=== PATIENT | male | born 1950 | race Caucasian/White ===

== ENCOUNTER 2023-07-07 10:49 | Emergency (ER) | payer OTHER ==
[~2023-07-07] VITALS: Ht 165.1 cm; Wt 63.6 kg
[2023-07-07 10:56] VITALS: TEMP 98.6; O2SAT 100
[2023-07-07 11:27] LABS: BASOPHILS # (AUTO) 0.1 X10'3 (0-0.2); EOSINOPHILS # (AUTO) 0.2 X10'3 (0-0.9); HEMOGLOBIN 12.9 g/dl (14.0-17.9); WHITE BLOOD COUNT 9.6 X10'3 (4.5-11.0)
[2023-07-07 11:29] LABS: BASOPHILS % (AUTO) 0.8 % (0-1); EOSINOPHILS % (AUTO) 1.8 % (0-6); LYMPHOCYTES # (AUTO) 4.2 X10'3 (1.1-4.8); LYMPHOCYTES % (AUTO) 43.7 % (21-51); MEAN CORPUSCULAR HEMOGLOBIN 29.2 PG (27.0-31.0); MEAN CORPUSCULAR HGB CONC 32.3 g/dL (33.0-36.5); MEAN CORPUSCULAR VOLUME 90.5 FL (78-98); MEAN PLATELET VOLUME 8.3 FL (7.4-10.4); MONOCYTES # (AUTO) 0.8 X10'3 (0-0.9); MONOCYTES % (AUTO) 8.1 % (2-12); NEUTROPHILS # (AUTO) 4.4 X10'3 (1.8-7.7); NEUTROPHILS % (AUTO) 45.6 % (42-75); PLATELET COUNT 621 X10'3 (140-440); RED BLOOD COUNT 4.42 X10'6 (4.70-6.10); RED CELL DISTRIBUTION WIDTH 16.7 % (11.5-14.5)
[2023-07-07 11:38] LABS: ALANINE AMINOTRANSFERASE 19 U/L (12-78); ALBUMIN 3.1 G/DL (3.4-5.0); ALBUMIN/GLOBULIN RATIO 0.5 (1.1-1.5); ALKALINE PHOSPHATASE 119 IU/L (46-116); ANION GAP 7 (8-16); ASPARTATE AMINO TRANSFERASE 14 U/L (10-37); BILIRUBIN,TOTAL 0.3 MG/DL (0.1-1.0); BLOOD UREA NITROGEN 21 MG/DL (7-18); BUN/CREATININE RATIO 21.2 (10.0-20.0); CALCIUM 9.9 MG/DL (8.5-10.1); CHLORIDE 101 MMOL/L (99-107); CREATININE 0.99 MG/DL (0.60-1.10); GLUCOSE 224 MG/DL (70-104); POTASSIUM 4.2 MMOL/L (3.5-5.1); SODIUM 135 MMOL/L (135-145); TOTAL CARBON DIOXIDE 26.9 MMOL/L (24-32); TOTAL PROTEIN 9.1 G/DL (6.4-8.2); eCRCL 59 ML/MIN; eGFR 74 ML/MIN
[2023-07-07 11:41] LABS: ANISOCYTOSIS 1+; BURR CELLS 1+; LARGE PLATELETS FEW; PLATELET ESTIMATE INCREASED; ROULEAUX 1+
[2023-07-07 11:46] LABS: PRO BRAIN NATRIURETIC PEPTIDE 1870 PG/ML (0-125)
[2023-07-07 12:21] LABS: BILIRUBIN,URINE NEGATIVE (Neg); CLARITY,URINE CLOUDY (Clear); COLOR,URINE YELLOW (Yellow); GLUCOSE, URINE >=1000 mg/dl (Neg); KETONES,URINE NEGATIVE (Neg); LEUKOCYTE ESTERASE ,URINE MODERATE (Neg); NITRITES, URINE NEGATIVE (Neg); OCCULT BLOOD,URINE MODERATE (Neg); PH,URINE 5.5 (4.8-8.0); PROTEIN,URINE 30 mg/dl (Neg); UROBILINOGEN,URINE 0.2 E.U/dL (0.2-1.0)
[2023-07-07 12:22] LABS: UA COLLECTION TYPE CLN CATCH MIDSTREAM
[2023-07-07 12:32] LABS: WBC,URINE TNTC /HPF (0-4)
[2023-07-07 12:40] LABS: SQUAMOUS EPITHELIAL CELL,UR NONE SEEN /LPF (FEW)
[2023-07-07 12:42] LABS: BACTERIA,URINE 1+ /HPF (Neg); YEAST FEW /HPF (NEGATIVE)
[2023-07-07] MEDS ORDERED: CefTRIAXone 1000mg IM Kit (w/lidocaine diluent) IM ONE (13:25)
[2023-07-07 14:11] VITALS: BP 115/71; PULSE 95; RESP 16
--- NOTE | 2023-07-07 14:12 | NUR ---
Patient refused IV insertion and when I discussed with him that I have to give the Rocephin IM for the UTI, he refused it initially.
[2023-07-07] MEDS ORDERED: CEPH250T PO (15:03)
== END 2023-07-07 15:42 | disposition home or self-care (01) ==
LOC: ER 10:50
DX: N39.0 Urinary tract infection, site not specified (principal); Z88.1 Allergy status to other antibiotic agents; Z88.8 Allergy status to other drugs, medicaments and biological substances
CPT/HCPCS: 36415; 71045; 80053; 81001; 83880; 84484; 85008; 85025; 87088; 93005; 96372; 99285; J0696

== ENCOUNTER 2023-09-03 06:29 | Day surgery (SDC) | payer OTHER ==
[~2023-09-03] VITALS: Ht 162.6 cm; Wt 66.7 kg
[2023-09-03] VITALS (9 sets, daily range): BP systolic 91–122; BP diastolic 37–56; PULSE 59–75; RESP 8–16; TEMP 97.7; O2SAT 97–99
[2023-09-03] MEDS ORDERED: cefazolin 2gm/D5W 100mL 100 ML IV ONE (06:50)
[2023-09-03] MEDS ORDERED: vancomycin/NS 1 GM ADD-VANTAGE 250 ML X 1 DOSE IV ONE (06:50)
[2023-09-03] MEDS ORDERED: ATOR-2 PO (07:28)
[2023-09-03] MEDS ORDERED: FERR325T28 PO (07:28)
[2023-09-03] MEDS ORDERED: SULF1TAB45 PO (07:28)
[2023-09-03] MEDS ORDERED: ASPI-1265 PO (07:28)
[2023-09-03] MEDS ORDERED: DABI150C PO (07:28)
[2023-09-03] MEDS ORDERED: CLOP75TA34 PO (07:28)
[2023-09-03] MEDS ORDERED: METF-438 PO (07:28)
[2023-09-03] MEDS ORDERED: INSU100V9 SQ (07:28)
[2023-09-03] MEDS ORDERED: VALS40TA11 PO (07:28)
[2023-09-03] MEDS ORDERED: ISOS30TA9 PO (07:28)
[2023-09-03] MEDS ORDERED: CARV25TA PO (07:28)
[2023-09-03 07:34] LABS: BASOPHILS # (AUTO) 0.1 X10'3 (0-0.2); BASOPHILS % (AUTO) 0.7 % (0-1); EOSINOPHILS # (AUTO) 0.2 X10'3 (0-0.9); EOSINOPHILS % (AUTO) 1.3 % (0-6); HEMATOCRIT 35.9 % (42.0-52.0); HEMOGLOBIN 11.7 g/dl (14.0-17.9); LYMPHOCYTES # (AUTO) 3.2 X10'3 (1.1-4.8); LYMPHOCYTES % (AUTO) 25.3 % (21-51); MEAN CORPUSCULAR HEMOGLOBIN 27.8 PG (27.0-31.0); MEAN CORPUSCULAR HGB CONC 32.5 g/dL (33.0-36.5); MEAN CORPUSCULAR VOLUME 85.6 FL (78-98); MEAN PLATELET VOLUME 8.7 FL (7.4-10.4); MONOCYTES # (AUTO) 1.1 X10'3 (0-0.9); NEUTROPHILS % (AUTO) 63.7 % (42-75); PLATELET COUNT 589 X10'3 (140-440); RED BLOOD COUNT 4.19 X10'6 (4.70-6.10); RED CELL DISTRIBUTION WIDTH 17.2 % (11.5-14.5); WHITE BLOOD COUNT 12.5 X10'3 (4.5-11.0)
[2023-09-03 07:45] LABS: ALBUMIN 3.1 G/DL (3.4-5.0); ANION GAP 9 (8-16); BLOOD UREA NITROGEN 34 MG/DL (7-18); BUN/CREATININE RATIO 28.3 (10.0-20.0); CALCIUM 9.5 MG/DL (8.5-10.1); CHLORIDE 104 MMOL/L (99-107); GLUCOSE 98 MG/DL (70-104); MAGNESIUM 1.4 MG/DL (1.5-2.4); POTASSIUM 4.8 MMOL/L (3.5-5.1); SODIUM 138 MMOL/L (135-145); TOTAL CARBON DIOXIDE 25.3 MMOL/L (24-32); eCRCL 47 ML/MIN; eGFR 60 ML/MIN
[2023-09-03 07:49] LABS: INR 1.1 INR; PROTHROMBIN TIME 11.9 SECONDS (9.0-12.0)
[2023-09-03] MEDS ORDERED: midazolam 1 mg/ML 2ml injection ONE ×2 (08:08→09:10)
[2023-09-03] MEDS ORDERED: LIDOCAINE 2%/EPI 1:100,000 inj. Multi-dose 20 ML VIAL ONE (08:08)
[2023-09-03] MEDS ORDERED: fentaNYL/PF 50MCG/1 ML 2ML syringe ONE ×2 (08:08→09:26)
[2023-09-03] MEDS ORDERED: vancomycin 1,000mg inj ONE (08:09)
[2023-09-03] MEDS ORDERED: SACU1TAB7 PO (08:35)
== END 2023-09-03 13:26 | disposition home or self-care (01) ==
LOC: SSTAY O 06:29
PROVIDERS: ATTEND Internal Medicine Cardiovascular Disease
DX: Z45.02 Encounter for adjustment and management of automatic implantable cardiac defibrillator (principal); I42.9 Cardiomyopathy, unspecified; I25.10 Atherosclerotic heart disease of native coronary artery without angina pectoris; I25.2 Old myocardial infarction; E11.9 Type 2 diabetes mellitus without complications; E78.5 Hyperlipidemia, unspecified; I11.0 Hypertensive heart disease with heart failure; I50.9 Heart failure, unspecified; D50.9 Iron deficiency anemia, unspecified; Z87.440 Personal history of urinary (tract) infections; Z79.01 Long term (current) use of anticoagulants; Z79.899 Other long term (current) drug therapy; Z79.82 Long term (current) use of aspirin; Z85.038 Personal history of other malignant neoplasm of large intestine; Z90.49 Acquired absence of other specified parts of digestive tract; Z88.1 Allergy status to other antibiotic agents
CPT/HCPCS: 33264; 36415; 80048; 82948; 83735; 85025; 85610; 93005; 99152; 99153; A6258; C1882; J2250; J3010; J3370; J7030

== ENCOUNTER 2023-10-08 10:55 | Day surgery (SDC) | payer OTHER ==
[~2023-10-08] VITALS: Ht 162.6 cm; Wt 58.2 kg
[2023-10-08] VITALS (9 sets, daily range): BP systolic 111–133; BP diastolic 53–70; PULSE 61–72; RESP 12–18; TEMP 97.9; O2SAT 98–100
[~2023-10-08 10:55] MED LIST: ATOR-2 PO; COR3.125T PO; DABI150C PO; INSU100V9 SQ; METF-438 PO; tamsulosin capsule PO
[2023-10-08 11:48] LABS: BASOPHILS # (AUTO) 0.1 X10'3 (0-0.2); EOSINOPHILS # (AUTO) 0.3 X10'3 (0-0.9); HEMOGLOBIN 10.8 g/dl (14.0-17.9)
[2023-10-08 11:50] LABS: BASOPHILS % (AUTO) 0.6 % (0-1); EOSINOPHILS % (AUTO) 2.7 % (0-6); HEMATOCRIT 34.1 % (42.0-52.0); LYMPHOCYTES # (AUTO) 3.4 X10'3 (1.1-4.8); LYMPHOCYTES % (AUTO) 30.2 % (21-51); MEAN CORPUSCULAR HEMOGLOBIN 27.8 PG (27.0-31.0); MEAN CORPUSCULAR HGB CONC 31.6 g/dL (33.0-36.5); MEAN CORPUSCULAR VOLUME 87.8 FL (78-98); MEAN PLATELET VOLUME 9.1 FL (7.4-10.4); MONOCYTES # (AUTO) 0.9 X10'3 (0-0.9); MONOCYTES % (AUTO) 8.2 % (2-12); NEUTROPHILS # (AUTO) 6.6 X10'3 (1.8-7.7); NEUTROPHILS % (AUTO) 58.3 % (42-75); PLATELET COUNT 451 X10'3 (140-440); RED BLOOD COUNT 3.89 X10'6 (4.70-6.10); RED CELL DISTRIBUTION WIDTH 18.4 % (11.5-14.5); WHITE BLOOD COUNT 11.3 X10'3 (4.5-11.0)
[2023-10-08 12:02] LABS: ALBUMIN 2.8 G/DL (3.4-5.0); ANION GAP 10 (8-16); BLOOD UREA NITROGEN 16 MG/DL (7-18); BUN/CREATININE RATIO 18.6 (10.0-20.0); CHLORIDE 103 MMOL/L (99-107); CREATININE 0.86 MG/DL (0.60-1.10); GLUCOSE 307 MG/DL (70-104); MAGNESIUM 1.9 MG/DL (1.5-2.4); POTASSIUM 4.5 MMOL/L (3.5-5.1); SODIUM 142 MMOL/L (135-145); TOTAL CARBON DIOXIDE 29.5 MMOL/L (24-32); eCRCL 64 ML/MIN; eGFR 87 ML/MIN
[2023-10-08 12:03] LABS: PROTHROMBIN TIME 10.8 SECONDS (9.0-12.0)
[2023-10-08] MEDS ORDERED: INSU100I52 SQ (12:04)
[2023-10-08] MEDS ORDERED: CARV-50 PO (12:04)
[2023-10-08] MEDS ORDERED: MIRT-142 PO (12:04)
[2023-10-08] MEDS ORDERED: ISOS30TA84 PO (12:04)
[2023-10-08] MEDS: vancomycin/NS 1 GM ADD-VANTAGE 250 ML X 1 DOSE IV ONE (12:19)
[2023-10-08 12:32] LABS: ANISOCYTOSIS 2+; PLATELET ESTIMATE INCREASED
[2023-10-08 12:33] LABS: ACANTHOCYTES 1+
[2023-10-08 12:34] LABS: LARGE PLATELETS FEW
[2023-10-08 12:35] LABS: ELLIPTOCYTES 1+
[2023-10-08 12:37] LABS: SCHISTOCYTES FEW
[2023-10-08] MEDS ORDERED: midazolam 1 mg/ML 2ml injection ONE (12:44)
[2023-10-08] MEDS ORDERED: vancomycin 1,000mg inj ONE (12:45)
[2023-10-08] MEDS ORDERED: fentaNYL/PF 50MCG/1 ML 2ML syringe ONE (12:45)
[2023-10-08] MEDS ORDERED: LIDOCAINE 2%/EPI 1:100,000 inj. Multi-dose 20 ML VIAL ONE (12:45)
[2023-10-08] MEDS ORDERED: HYDROcodone/acetaminophen 5mg/325mg tablet PO PRN (14:55)
[2023-10-08] MEDS ORDERED: LORazepam 1 MG tablet PO PRN (14:55)
[2023-10-08] MEDS ORDERED: normal saline 1000ml 1,000 ML IV SCH (14:55)
[2023-10-08] MEDS: cefazolin 2gm/D5W 100mL 100 ML IV ONE (14:55)
[2023-10-08] MEDS ORDERED: HYDROcodone/acetaminophen 10/325mg tab PO PRN (14:55)
[2023-10-19] MEDS ORDERED: INSU100V9 SQ (17:55)
[2023-10-30] MEDS ORDERED: ASPI-612 PO (18:45)
[2023-10-30] MEDS ORDERED: ONDA4TAB12 PO (18:45)
[2023-10-30] MEDS ORDERED: BISA10SU60 RC (18:45)
[2023-10-30] MEDS ORDERED: NA P230E (18:45)
[2023-10-30] MEDS ORDERED: ACET325T57 PO (18:45)
[2023-10-30] MEDS ORDERED: HYDR-3973 PO (18:45)
[2023-10-30] MEDS ORDERED: LACTOBACILLUS PO (18:45)
[2023-10-30] MEDS ORDERED: MERO1PIG IV (18:45)
[2023-10-30] MEDS ORDERED: DOCU100C40 PO (18:45)
[2023-10-30] MEDS ORDERED: MOM (18:45)
== END 2023-10-08 16:30 | disposition home or self-care (01) ==
LOC: CATH LAB 10:55 → SSTAY O 16:30
PROVIDERS: ATTEND Internal Medicine Cardiovascular Disease
DX: Z45.018 Encounter for adjustment and management of other part of cardiac pacemaker (principal); I11.0 Hypertensive heart disease with heart failure; I50.9 Heart failure, unspecified; E11.9 Type 2 diabetes mellitus without complications; I25.10 Atherosclerotic heart disease of native coronary artery without angina pectoris; E78.5 Hyperlipidemia, unspecified; I42.9 Cardiomyopathy, unspecified; Z85.038 Personal history of other malignant neoplasm of large intestine; Z79.01 Long term (current) use of anticoagulants; Z79.4 Long term (current) use of insulin; Z79.82 Long term (current) use of aspirin; Z79.891 Long term (current) use of opiate analgesic; Z79.899 Other long term (current) drug therapy; Z90.49 Acquired absence of other specified parts of digestive tract; Z98.890 Other specified postprocedural states
CPT/HCPCS: 33222; 36415; 80048; 82948; 83735; 85025; 85610; 93005; 99152; 99153; J2250; J3010; J3370; J7030; 85008; A6258; A6449

== ENCOUNTER 2023-11-02 08:04 | Observation (INO) | payer OTHER, MEDICARE ==
[~2023-11-02] VITALS: Ht 162.6 cm; Wt 65.4 kg
[2023-11-02] VITALS (20 sets, daily range): BP systolic 114–172; BP diastolic 49–85; PULSE 60–81; RESP 9–19; TEMP 97–97.7; O2SAT 95–100
[2023-11-02] MEDS: normal saline 1000ml 1,000 ML IV SCH ×3 (05:30→14:35)
[2023-11-02] MEDS: DOCUMENT DATE & TIME OF BETA-BLOCKER PO ONE (05:30)
[2023-11-02] MEDS: famotidine 20mg tablet PO ONE (05:30)
[2023-11-02] MEDS: ringers solution, lacted 1,000 ML IV SCH ×2 (05:30→10:30)
[2023-11-02] MEDS: famotidine/PF 10 mg/ml inj IV ONE (05:30)
[~2023-11-02 08:04] MED LIST changes: +ACET325T57 PO; +ASPI-612 PO; +BISA10SU60 RC; +CARV-50 PO; -COR3.125T PO; -DABI150C PO; +DOBUTamine/D5W 500mg/250ml premix IV ONE; +DOCU100C40 PO; +HYDR-3973 PO; -INSU100V9 SQ; +LACTOBACILLUS PO; +MERO1PIG IV; +MIRT-142 PO; +MOM; +NA P230E; +ONDA4TAB12 PO; -tamsulosin capsule PO
[2023-11-02] MEDS ORDERED: vancomycin 1,000mg inj ONE (09:54)
[2023-11-02] MEDS ORDERED: iohexol 350MG/ML 100ml bottle IV ONE (09:54)
[2023-11-02 10:04] LABS: BASOPHILS # (AUTO) 0.1 X10'3 (0-0.2); BASOPHILS % (AUTO) 0.9 % (0-1); EOSINOPHILS # (AUTO) 0.6 X10'3 (0-0.9); EOSINOPHILS % (AUTO) 5.2 % (0-6); LYMPHOCYTES # (AUTO) 2.5 X10'3 (1.1-4.8); LYMPHOCYTES % (AUTO) 22.6 % (21-51); MEAN CORPUSCULAR HEMOGLOBIN 29.1 PG (27.0-31.0); MEAN CORPUSCULAR HGB CONC 32.8 g/dL (33.0-36.5); MEAN CORPUSCULAR VOLUME 88.6 FL (78-98); MEAN PLATELET VOLUME 9.3 FL (7.4-10.4); MONOCYTES # (AUTO) 1.1 X10'3 (0-0.9); MONOCYTES % (AUTO) 10.2 % (2-12); NEUTROPHILS # (AUTO) 6.7 X10'3 (1.8-7.7); NEUTROPHILS % (AUTO) 61.1 % (42-75); PRE OP HEMATOCRIT 29.7 % (42.0-52.0); PRE OP PLATELET COUNT 387 X10'3 (140-440); RED BLOOD COUNT 3.36 X10'6 (4.70-6.10); RED CELL DISTRIBUTION WIDTH 16.7 % (11.5-14.5)
[2023-11-02 10:13] LABS: PRE OP HEMOGLOBIN 9.8 g/dL (14.0-17.9)
[2023-11-02] MEDS: vancomycin/NS 1 GM ADD-VANTAGE 250 ML IV ONE (10:15)
[2023-11-02 10:18] LABS: PRE OP PROTIME 10.9 SECONDS (9.0-12.0)
[2023-11-02] MEDS ORDERED: midazolam 1 mg/ML 2ml injection ONE (10:23)
[2023-11-02] MEDS ORDERED: fentaNYL /PF 50mcg/ml 5ml ampule ONE (10:23)
[2023-11-02 10:26] LABS: ALBUMIN 2.2 G/DL (3.4-5.0); ALBUMIN/GLOBULIN RATIO 0.5 (1.1-1.5); ALKALINE PHOSPHATASE 66 IU/L (46-116); BLOOD UREA NITROGEN 19 MG/DL (7-18); CALCIUM 8.8 MG/DL (8.5-10.1); CHLORIDE 105 MMOL/L (99-107); CREATININE 0.73 MG/DL (0.60-1.10); PRE OP ALT 22 U/L (30-65); PRE OP ANION GAP 10 (8-16); PRE OP AST 20 U/L (10-37); PRE OP BILIRUB, TOTAL 0.3 MG/DL (0.0-1.0); PRE OP GLUCOSE 130 MG/DL (70-104); PRE OP POTASSIUM 3.8 MMOL/L (3.4-5.1); PRE OP SODIUM 142 MMOL/L (135-145); TOTAL CARBON DIOXIDE 26.6 MMOL/L (24-32); TOTAL PROTEIN 6.8 G/DL (6.4-8.2); eCRCL 77 ML/MIN; eGFR > 90 ML/MIN
[2023-11-02] MEDS ORDERED: NORepinephrine 8 MG in NS 250 ML BAG (32 mcg/ml) IV ONE (10:28)
[2023-11-02] MEDS ORDERED: morphine 4 MG/ML inj SYRINge IV PRN (10:30)
[2023-11-02] MEDS: acetaminophen 1,000mg/100ml IV 100 ML IV ONE (10:30)
[2023-11-02] MEDS ORDERED: hydrALAZINE 20mg/ml inj. IV PRN (10:30)
[2023-11-02] MEDS ORDERED: meperidine/PF 25mg/ml syringe IV PRN ×3 (10:30)
[2023-11-02] MEDS ORDERED: labetalol 20mg/4ml (5mg/ml) syringe IV PRN (10:30)
[2023-11-02] MEDS ORDERED: proCHLORperazine 10 MG/2 ml inj IV PRN (10:30)
[2023-11-02] MEDS ORDERED: morphine 2 MG/ML inj. syringe IV PRN (10:30)
[2023-11-02] MEDS ORDERED: ondansetron/PF 4mg/2ml inj IV PRN (10:30)
[2023-11-02] MEDS ORDERED: LIDOcaine 2% (20mg/ml) 5ml vial ONE (11:44)
[2023-11-02] MEDS ORDERED: dexamethasone sod phosphate 4mg/ml inj. ONE (11:44)
[2023-11-02] MEDS ORDERED: propofol inj 20 ML IV ONE (11:44)
[2023-11-02] MEDS ORDERED: rocuronium 10mg/ml inj IV ONE (11:44)
[2023-11-02] MEDS ORDERED: ondansetron/PF 4mg/2ml inj ONE (11:44)
[2023-11-02] MEDS ORDERED: LIDOcaine 1% w/EPI 1:100,000 inj. MDV 50 ML VIAL ONE (11:56)
[2023-11-02] MEDS ORDERED: neostigmine methylsulfate 1 MG/ML 10ml vial ONE (13:35)
[2023-11-02] MEDS ORDERED: glycopyrrolate 0.2mg/ml inj ONE (13:35)
[2023-11-02] MEDS ORDERED: acetaminophen 325mg tablet PO PRN (14:35)
[2023-11-02] MEDS ORDERED: HYDROcodone/acetaminophen 5mg/325mg tablet PO PRN (14:35)
[2023-11-02] MEDS ORDERED: HYDROcodone/acetaminophen 10/325mg tab PO PRN (14:35)
[2023-11-02] MEDS ORDERED: non-formulary drug (Metformin HCl 1 TAB) PO SCH (20:00)
[2023-11-02] MEDS ORDERED: SODIUM CHLORIDE IV SCH (20:00)
[2023-11-02] MEDS: docusate sod 100mg capsule PO SCH (20:00)
[2023-11-02] MEDS: carVEDilol 12.5mg tablet PO SCH (20:00)
[2023-11-02] MEDS ORDERED: MEROPENEM IV SCH (20:00)
[2023-11-02] MEDS: HYDROcodone/acetaminophen 10/325mg tab PO PRN (22:22)
[2023-11-02] MEDS: mirtazapine 15mg tablet PO SCH (22:23)
[2023-11-02] MEDS: MEROPENEM 1GM/NS 100ML IVPB IV SCH (22:28)
[2023-11-03 02:00] VITALS: BP 129/60; PULSE 79; RESP 20; TEMP 97.8; O2SAT 97
[2023-11-03 06:00] VITALS: BP 119/54; PULSE 67; RESP 14; TEMP 98.2; O2SAT 97
[2023-11-03 06:14] LABS: BASOPHILS % (AUTO) 0.1 % (0-1); EOSINOPHILS % (AUTO) 0 % (0-6); HEMOGLOBIN 8.5 g/dl (14.0-17.9); LYMPHOCYTES # (AUTO) 1.7 X10'3 (1.1-4.8); LYMPHOCYTES % (AUTO) 12.4 % (21-51); MEAN CORPUSCULAR HEMOGLOBIN 28.6 PG (27.0-31.0); MEAN CORPUSCULAR HGB CONC 32.5 g/dL (33.0-36.5); MEAN PLATELET VOLUME 9.4 FL (7.4-10.4); MONOCYTES # (AUTO) 1.1 X10'3 (0-0.9); MONOCYTES % (AUTO) 8.1 % (2-12); NEUTROPHILS # (AUTO) 10.7 X10'3 (1.8-7.7); NEUTROPHILS % (AUTO) 79.4 % (42-75); PLATELET COUNT 329 X10'3 (140-440); RED BLOOD COUNT 2.96 X10'6 (4.70-6.10); WHITE BLOOD COUNT 13.4 X10'3 (4.5-11.0)
[2023-11-03] MEDS: aspirin 81mg, enteric-coated 1 TAB TABLET.DR PO SCH (08:00)
[2023-11-03] MEDS: bisacodyl 10mg suppository rectal RC SCH (08:00)
[2023-11-03] MEDS ORDERED: DEXTROSE 15 GM of carb/4 tabs (each vial/BOTTLE has 4 tablets) PO PRN ×2 (09:10)
[2023-11-03] MEDS ORDERED: glucagon, human recombinant 1mg kit SUBCUT PRN (09:10)
[2023-11-03] MEDS ORDERED: insulin Lispro (HumaLOG) vial - multi-dose SQ SCH (09:10)
[2023-11-03] MEDS ORDERED: dextrose 50%-water 50ml dispensing syringe IV PRN ×2 (09:10)
[2023-11-03] MEDS: MESSAGE TO PHARMACY PO ONE (09:14)
[2023-11-03] MEDS: atorvastatin 20mg tablet PO SCH (09:23)
[2023-11-03 11:00] VITALS: BP 139/70; PULSE 82; RESP 17; TEMP 98.9; O2SAT 98
[2023-11-03] MEDS ORDERED: insulin glargine (Lantus) pen - multi-dose SQ SCH (21:00)
== END 2023-11-03 13:19 ==
LOC: CATH LAB 08:04 → PCU 3S 15:34
PROVIDERS: ADMIT Internal Medicine Cardiovascular Disease; ATTEND Internal Medicine Cardiovascular Disease
DX: T82.7XXA Infection and inflammatory reaction due to other cardiac and vascular devices, implants and grafts, initial encounter (principal); I42.0 Dilated cardiomyopathy; I25.5 Ischemic cardiomyopathy; N39.0 Urinary tract infection, site not specified; I25.2 Old myocardial infarction; I25.10 Atherosclerotic heart disease of native coronary artery without angina pectoris; E87.5 Hyperkalemia; I13.0 Hypertensive heart and chronic kidney disease with heart failure and stage 1 through stage 4 chronic kidney disease, or unspecified chronic kidney disease; E11.22 Type 2 diabetes mellitus with diabetic chronic kidney disease; N18.9 Chronic kidney disease, unspecified; I50.9 Heart failure, unspecified; Z79.4 Long term (current) use of insulin; Z79.899 Other long term (current) drug therapy; Z79.01 Long term (current) use of anticoagulants; Z95.810 Presence of automatic (implantable) cardiac defibrillator; Z86.2 Personal history of diseases of the blood and blood-forming organs and certain disorders involving the immune mechanism; Z88.5 Allergy status to narcotic agent; Y83.1 Surgical operation with implant of artificial internal device as the cause of abnormal reaction of the patient, or of later complication, without mention of misadventure at the time of the procedure
CPT/HCPCS: 33233; 33234; 33235; 33244; 36415; 71045; 80053; 82948; 83036; 85025; 85610; 85730; 86885; 86900; 86901; 86920; 96365; 96366; A6258; C1769; C1773; G0378; J1100; J1250; J1265; J1644; J1815; J2185; J2250; J2270; J2405; J2704; J2710; J3010; J3370; J3490; J7030; J7040; J7120; Q9967; A4618; A6250; A6402; A6446; A6449; C1725; C1760; C1892; C1894

== ENCOUNTER 2023-11-26 07:19 | Day surgery (SDC) | payer OTHER, MEDICARE ==
[~2023-11-26] VITALS: Ht 162.6 cm; Wt 57.6 kg
[2023-11-26] VITALS (9 sets, daily range): BP systolic 107–122; BP diastolic 29–61; PULSE 60–78; RESP 12–16; TEMP 97.7; O2SAT 95–100
[~2023-11-26 07:19] MED LIST changes: -DOBUTamine/D5W 500mg/250ml premix IV ONE
[2023-11-26 08:44] LABS: EOSINOPHILS # (AUTO) 0.2 X10'3 (0-0.9); MEAN PLATELET VOLUME 9.1 FL (7.4-10.4); MONOCYTES # (AUTO) 1.2 X10'3 (0-0.9); WHITE BLOOD COUNT 12.3 X10'3 (4.5-11.0)
[2023-11-26 08:45] LABS: BASOPHILS % (AUTO) 0.3 % (0-1); EOSINOPHILS % (AUTO) 1.5 % (0-6); HEMATOCRIT 28.2 % (42.0-52.0); LYMPHOCYTES # (AUTO) 2.2 X10'3 (1.1-4.8); LYMPHOCYTES % (AUTO) 17.8 % (21-51); MEAN CORPUSCULAR HEMOGLOBIN 27.4 PG (27.0-31.0); MEAN CORPUSCULAR HGB CONC 32.1 g/dL (33.0-36.5); MEAN CORPUSCULAR VOLUME 85.3 FL (78-98); MONOCYTES % (AUTO) 9.7 % (2-12); NEUTROPHILS # (AUTO) 8.7 X10'3 (1.8-7.7); NEUTROPHILS % (AUTO) 70.7 % (42-75); PLATELET COUNT 737 X10'3 (140-440); RED CELL DISTRIBUTION WIDTH 18.2 % (11.5-14.5)
[2023-11-26 08:59] LABS: ANISOCYTOSIS 2+; PLATELET ESTIMATE INCREASED
[2023-11-26 09:00] LABS: ACANTHOCYTES FEW; BURR CELLS 2+; ELLIPTOCYTES FEW; TARGET CELLS FEW
[2023-11-26] MEDS ORDERED: fentaNYL/PF 50MCG/1 ML 2ML syringe ONE (09:07)
[2023-11-26] MEDS ORDERED: iohexol 350 MG/ML 50ML vial IV ONE ×2 (09:07→11:24)
[2023-11-26] MEDS ORDERED: midazolam 1 mg/ML 2ml injection ONE ×3 (09:07→12:43)
[2023-11-26] MEDS ORDERED: vancomycin 1,000mg inj ONE (09:08)
[2023-11-26] MEDS ORDERED: LIDOCAINE 2%/EPI 1:100,000 inj. Multi-dose 20 ML VIAL ONE (09:08)
[2023-11-26 09:20] LABS: INR 1.1 INR; PROTHROMBIN TIME 11.5 SECONDS (9.0-12.0)
[2023-11-26] MEDS ORDERED: clindamycin-Cleocin 900mg/D5W 50 ML IV SCH (09:25)
[2023-11-26 09:26] LABS: ANION GAP 8 (8-16); BLOOD UREA NITROGEN 12 MG/DL (7-18); CALCIUM 8.7 MG/DL (8.5-10.1); CHLORIDE 103 MMOL/L (99-107); GLUCOSE 171 MG/DL (70-104); MAGNESIUM 1.3 MG/DL (1.5-2.4); SODIUM 137 MMOL/L (135-145); TOTAL CARBON DIOXIDE 26.2 MMOL/L (24-32); eCRCL 68 ML/MIN; eGFR > 90 ML/MIN
[2023-11-26] MEDS: vancomycin/NS 1 GM in NS 250 ML IV ONE (09:31)
[2023-11-26] MEDS ORDERED: vancomycin/NS 1 GM in NS 250 ML IV ONE (09:40)
[2023-11-26] MEDS ORDERED: HYDROmorphone 1 mg/ml syringe ONE ×2 (10:52→11:04)
[2023-11-26] MEDS ORDERED: LIDOcaine 1% W/epiNEPHrine 1:100,000 20ml vial ONE (10:58)
[2023-11-26] MEDS ORDERED: normal saline 1000ml 1,000 ML IV SCH (13:45)
[2023-11-27] MEDS ORDERED: clindamycin-Cleocin 900mg/D5W 50 ML IV ONE (05:30)
== END 2023-11-26 17:05 ==
LOC: SSTAY O 07:19
PROVIDERS: ATTEND Internal Medicine Cardiovascular Disease
DX: Z45.02 Encounter for adjustment and management of automatic implantable cardiac defibrillator (principal); I49.3 Ventricular premature depolarization; I25.2 Old myocardial infarction; I10 Essential (primary) hypertension; I25.10 Atherosclerotic heart disease of native coronary artery without angina pectoris; E11.9 Type 2 diabetes mellitus without complications; E78.5 Hyperlipidemia, unspecified; I42.9 Cardiomyopathy, unspecified; Z85.038 Personal history of other malignant neoplasm of large intestine; Z87.440 Personal history of urinary (tract) infections; Z79.01 Long term (current) use of anticoagulants; Z79.2 Long term (current) use of antibiotics; Z79.4 Long term (current) use of insulin; Z79.891 Long term (current) use of opiate analgesic; Z90.49 Acquired absence of other specified parts of digestive tract; Z98.890 Other specified postprocedural states; Z88.1 Allergy status to other antibiotic agents; Z88.8 Allergy status to other drugs, medicaments and biological substances
CPT/HCPCS: 33249; 36415; 71045; 80048; 82948; 83735; 85025; 85610; 93005; 93308; 93641; 99152; 99153; C1769; C1882; C1895; C1898; C1900; J1170; J2250; J3010; J3370; J3490; J7030; Q9967; 85008; 96360; A4565; A6258

== ENCOUNTER 2024-01-01 08:51 | Emergency (ER) | payer OTHER, MEDICARE ==
[~2024-01-01] VITALS: Ht 162.6 cm; Wt 60.0 kg
[~2024-01-01 08:51] MED LIST changes: -BISA10SU60 RC; -LACTOBACILLUS PO; -MERO1PIG IV; -MOM; -NA P230E; -ONDA4TAB12 PO
[2024-01-01 08:57] VITALS: TEMP 97.8
[2024-01-01] MEDS: normal saline 1000ML IV soln IVB ONE (10:00)
[2024-01-01 10:08] LABS: BASOPHILS # (AUTO) 0.1 X10'3 (0-0.2); EOSINOPHILS # (AUTO) 0.5 X10'3 (0-0.9); HEMOGLOBIN 9.1 g/dl (14.0-17.9); LYMPHOCYTES # (AUTO) 1.9 X10'3 (1.1-4.8); MEAN PLATELET VOLUME 9.3 FL (7.4-10.4); NEUTROPHILS # (AUTO) 7.4 X10'3 (1.8-7.7); WHITE BLOOD COUNT 10.9 X10'3 (4.5-11.0)
[2024-01-01 10:09] LABS: BASOPHILS % (AUTO) 0.9 % (0-1); EOSINOPHILS % (AUTO) 4.4 % (0-6); HEMATOCRIT 28.4 % (42.0-52.0); LYMPHOCYTES % (AUTO) 17.6 % (21-51); MEAN CORPUSCULAR HEMOGLOBIN 26.4 PG (27.0-31.0); MEAN CORPUSCULAR VOLUME 82.7 FL (78-98); MONOCYTES % (AUTO) 9.1 % (2-12); PLATELET COUNT 541 X10'3 (140-440); RED BLOOD COUNT 3.44 X10'6 (4.70-6.10); RED CELL DISTRIBUTION WIDTH 19.8 % (11.5-14.5)
[2024-01-01 10:23] LABS: LARGE PLATELETS FEW; PLATELET ESTIMATE INCREASED
[2024-01-01 10:24] LABS: ACANTHOCYTES 2+; ANISOCYTOSIS 2+
[2024-01-01 10:25] LABS: MICROCYTOSIS 1+
[2024-01-01 10:26] LABS: ALBUMIN 2.7 G/DL (3.4-5.0); ANION GAP 9 (8-16); BLOOD UREA NITROGEN 19 MG/DL (7-18); BUN/CREATININE RATIO 21.1 (10.0-20.0); CALCIUM 9.8 MG/DL (8.5-10.1); CHLORIDE 101 MMOL/L (99-107); GLUCOSE 206 MG/DL (70-104); LIPASE 20 U/L (16-77); POTASSIUM 4.3 MMOL/L (3.5-5.1); SODIUM 137 MMOL/L (135-145); TOTAL CARBON DIOXIDE 26.9 MMOL/L (24-32); eCRCL 62 ML/MIN; eGFR 83 ML/MIN
[2024-01-01 10:28] LABS: BURR CELLS 2+; SCHISTOCYTES 2+
[2024-01-01] MEDS ORDERED: iohexol 300mg/ml 100ml inj. ONE (10:32)
[2024-01-01 13:41] LABS: BILIRUBIN,URINE NEGATIVE (Neg); CLARITY,URINE CLOUDY (Clear); COLOR,URINE YELLOW (Yellow); GLUCOSE, URINE NEGATIVE (Neg); KETONES,URINE NEGATIVE (Neg); LEUKOCYTE ESTERASE ,URINE LARGE (Neg); NITRITES, URINE NEGATIVE (Neg); OCCULT BLOOD,URINE TRACE-INTACT (Neg); PROTEIN,URINE NEGATIVE (Neg); UROBILINOGEN,URINE 0.2 E.U/dL (0.2-1.0)
[2024-01-01 13:46] LABS: UA COLLECTION TYPE URINAL
[2024-01-01 13:47] LABS: BACTERIA,URINE 4+ /HPF (Neg); WBC CLUMPS,URINE MANY /HPF (NEGATIVE); WBC,URINE TNTC /HPF (0-4)
[2024-01-01 13:49] LABS: RBC,URINE 0-2 /HPF (0-2)
[2024-01-01 13:50] LABS: SQUAMOUS EPITHELIAL CELL,UR NONE SEEN /LPF (FEW)
[2024-01-01] MEDS: CefTRIAXone 2gm/D5W 50ml BAG 50 ML IV ONE (14:49)
[2024-01-01] MEDS ORDERED: ipratropium/albuterol 3ml nebule NEB ONE (15:05)
[2024-01-01] MEDS ORDERED: methylPREDNISolone sod succ 125mg/2ml vial IV ONE (15:05)
[2024-01-01] MEDS ORDERED: morphine 4 MG/ML inj SYRINge IV ONE (15:10)
[2024-01-01] MEDS ORDERED: DOCU-171 PO (15:46)
[2024-01-01] MEDS ORDERED: CEPH250T PO (15:47)
[2024-01-01 17:18] VITALS: BP 114/64; PULSE 83; RESP 14; O2SAT 95
== END 2024-01-01 17:17 | disposition home or self-care (01) ==
LOC: ER 08:52
DX: K59.00 Constipation, unspecified (principal); N39.0 Urinary tract infection, site not specified; Z88.8 Allergy status to other drugs, medicaments and biological substances; I25.10 Atherosclerotic heart disease of native coronary artery without angina pectoris; Z86.73 Personal history of transient ischemic attack (TIA), and cerebral infarction without residual deficits; I25.2 Old myocardial infarction; Z95.1 Presence of aortocoronary bypass graft; Z95.0 Presence of cardiac pacemaker
CPT/HCPCS: 36415; 74177; 80048; 81001; 83690; 85008; 85025; 87077; 87088; 87186; 96361; 96365; 99285; J0696; J3490; J7030; Q9967

== ENCOUNTER 2024-03-25 12:21 | Inpatient (IN) | payer OTHER, MEDICARE ==
[~2024-03-25] VITALS: Ht 162.6 cm; Wt 64.3 kg
[2024-03-25] VITALS (18 sets, daily range): BP systolic 99–137; BP diastolic 39–86; PULSE 86–103; RESP 12–26; TEMP 97.7–98.3; O2SAT 93–100
[~2024-03-25 12:21] MED LIST changes: -ACET325T57 PO; -DOCU100C40 PO; +FINA5TAB11 PO; +FLO0.4C PO; -HYDR-3973 PO; -METF-438 PO; +MULT-1085 PO; +RIVA20TA PO
[2024-03-25] MEDS ORDERED: pantoprazole 40mg IV 80 MG in normal saline 100ml IV soln 100 ML IV ONE (12:45)
[2024-03-25] MEDS: normal saline 1000ml 1,000 ML IV ONE (12:45)
[2024-03-25 13:03] LABS: BASOPHILS # (AUTO) 0.1 X10'3 (0-0.2); BASOPHILS % (AUTO) 0.4 % (0-1); EOSINOPHILS # (AUTO) 0.1 X10'3 (0-0.9); EOSINOPHILS % (AUTO) 0.7 % (0-6); LYMPHOCYTES # (AUTO) 3.4 X10'3 (1.1-4.8); LYMPHOCYTES % (AUTO) 22.4 % (21-51); MEAN CORPUSCULAR HEMOGLOBIN 27.6 PG (27.0-31.0); MEAN CORPUSCULAR HGB CONC 31.5 g/dL (33.0-36.5); MEAN CORPUSCULAR VOLUME 87.7 FL (78-98); MEAN PLATELET VOLUME 8.9 FL (7.4-10.4); MONOCYTES # (AUTO) 1.1 X10'3 (0-0.9); MONOCYTES % (AUTO) 7.3 % (2-12); NEUTROPHILS # (AUTO) 10.7 X10'3 (1.8-7.7); NEUTROPHILS % (AUTO) 69.2 % (42-75); PLATELET COUNT 290 X10'3 (140-440); RED BLOOD COUNT 2.06 X10'6 (4.70-6.10); RED CELL DISTRIBUTION WIDTH 18.1 % (11.5-14.5); WHITE BLOOD COUNT 15.4 X10'3 (4.5-11.0)
[2024-03-25 13:06] LABS: HEMOGLOBIN 5.7 g/dl (14.0-17.9)
[2024-03-25 13:07] LABS: HEMATOCRIT 18.1 % (42.0-52.0)
[2024-03-25 13:17] LABS: APTT 28 SECONDS (22-32); INR 1.5 INR; PROTHROMBIN TIME 15.6 SECONDS (9.0-12.0)
[2024-03-25 13:19] LABS: ALBUMIN 2.5 G/DL (3.4-5.0); ANION GAP 8 (8-16); BLOOD UREA NITROGEN 55 MG/DL (7-18); BUN/CREATININE RATIO 46.2 (10.0-20.0); CALCIUM 8.6 MG/DL (8.5-10.1); CHLORIDE 105 MMOL/L (99-107); CREATININE 1.19 MG/DL (0.60-1.10); ETHANOL < 10 MG/DL (<10); GLUCOSE 218 MG/DL (70-104); LIPASE 53 U/L (16-77); MAGNESIUM 1.6 MG/DL (1.5-2.4); POTASSIUM 4.3 MMOL/L (3.5-5.1); SODIUM 136 MMOL/L (135-145); TOTAL CARBON DIOXIDE 23.1 MMOL/L (24-32); eCRCL 46 ML/MIN; eGFR 60 ML/MIN
[2024-03-25 13:58] LABS: OCCULT BLOOD STOOL POSITIVE (Neg)
[2024-03-25] MEDS ORDERED: acetaminophen 325mg tablet PO PRN ×2 (14:50)
[2024-03-25] MEDS ORDERED: ondansetron/PF 4mg/2ml inj IV PRN (14:50)
[2024-03-25] MEDS: normal saline 1000ml 1,000 ML IV SCH (15:47)
[2024-03-25] MEDS: pantoprazole 40 MG vial IV ONE (15:48)
[2024-03-25] MEDS ORDERED: DEXTROSE 15 GM of carb/4 tabs (each vial/BOTTLE has 4 tablets) PO PRN ×2 (15:50)
[2024-03-25] MEDS ORDERED: glucagon, human recombinant 1mg kit SUBCUT PRN (15:50)
[2024-03-25] MEDS ORDERED: dextrose 50%-water 50ml dispensing syringe IV PRN (15:50)
[2024-03-25] MEDS: octreotide inj. 500 MCG in normal saline 100ml IV soln 97.5 ML IV SCH (15:53)
[2024-03-25 16:09] LABS: PRO BRAIN NATRIURETIC PEPTIDE 6110 PG/ML (0-125); THYROID STIMULATING HORMONE 5.36 ulU/ml (0.34-4.50)
[2024-03-25] MEDS ORDERED: CefTRIAXone/D5W-Rocephin 1gm 50 ML IV ONE (16:45)
[2024-03-25] MEDS: INSULIN LISPRO 100 UNIT/ML INSULN.PEN MULTI-DOSE SQ SCH (17:00)
[2024-03-25] MEDS: morphine 2 MG/ML inj. syringe IV PRN (19:16)
[2024-03-25] MEDS: pantoprazole 40MG/NS 100ML BAG 100 ML IV SCH (19:24)
[2024-03-25] MEDS: DEXTROSE IV ONE (19:41)
[2024-03-25] MEDS: SULFAMETHOX IV ONE (19:41)
[2024-03-25] MEDS: WATER IV ONE (19:41)
[2024-03-25] MEDS: TRIMETHOPRIM IV ONE (19:41)
[2024-03-25 21:37] LABS: BILIRUBIN,URINE NEGATIVE (Neg); CLARITY,URINE TURBID (Clear); COLOR,URINE YELLOW (Yellow); GLUCOSE, URINE NEGATIVE (Neg); KETONES,URINE NEGATIVE (Neg); LEUKOCYTE ESTERASE ,URINE LARGE (Neg); NITRITES, URINE NEGATIVE (Neg); OCCULT BLOOD,URINE MODERATE (Neg); PROTEIN,URINE TRACE mg/dl (Neg); UROBILINOGEN,URINE 0.2 E.U/dL (0.2-1.0)
[2024-03-25 21:39] LABS: UA COLLECTION TYPE FOLEY CATH
[2024-03-25 21:49] LABS: MUCUS STRANDS NONE SEEN /LPF (Neg); SQUAMOUS EPITHELIAL CELL,UR NONE SEEN /LPF (FEW); WBC,URINE TNTC /HPF (0-4); YEAST MANY /HPF (NEGATIVE)
[2024-03-25 21:52] LABS: BACTERIA,URINE 2+ /HPF (Neg)
[2024-03-25 21:53] LABS: WBC CLUMPS,URINE MANY /HPF (NEGATIVE)
[2024-03-25] MEDS: insulin glargine (Lantus) pen - multi-dose SQ SCH (22:13)
[2024-03-25 22:50] LABS: BASOPHILS % (AUTO) 0.3 % (0-1); EOSINOPHILS # (AUTO) 0.1 X10'3 (0-0.9); EOSINOPHILS % (AUTO) 0.4 % (0-6); HEMATOCRIT 27.1 % (42.0-52.0); HEMOGLOBIN 8.8 g/dl (14.0-17.9); LYMPHOCYTES # (AUTO) 3.4 X10'3 (1.1-4.8); MEAN CORPUSCULAR HEMOGLOBIN 28.3 PG (27.0-31.0); MEAN CORPUSCULAR HGB CONC 32.7 g/dL (33.0-36.5); MEAN CORPUSCULAR VOLUME 86.6 FL (78-98); MEAN PLATELET VOLUME 8.9 FL (7.4-10.4); MONOCYTES # (AUTO) 1.3 X10'3 (0-0.9); MONOCYTES % (AUTO) 9.3 % (2-12); NEUTROPHILS # (AUTO) 8.8 X10'3 (1.8-7.7); PLATELET COUNT 220 X10'3 (140-440); RED BLOOD COUNT 3.12 X10'6 (4.70-6.10); RED CELL DISTRIBUTION WIDTH 17.7 % (11.5-14.5); WHITE BLOOD COUNT 13.5 X10'3 (4.5-11.0)
[2024-03-25] MEDS: morphine 4 MG/ML inj SYRINge IV PRN (23:21)
[2024-03-26] VITALS (23 sets, daily range): BP systolic 88–139; BP diastolic 44–74; PULSE 60–101; RESP 10–21; TEMP 98.5–98.8; O2SAT 89–99
[2024-03-26 02:36] LABS: BASOPHILS # (AUTO) 0.1 X10'3 (0-0.2); EOSINOPHILS # (AUTO) 0.1 X10'3 (0-0.9); HEMOGLOBIN 8.7 g/dl (14.0-17.9); MEAN CORPUSCULAR HEMOGLOBIN 28.8 PG (27.0-31.0); MONOCYTES # (AUTO) 1.6 X10'3 (0-0.9); NEUTROPHILS # (AUTO) 7.9 X10'3 (1.8-7.7)
[2024-03-26 02:38] LABS: BASOPHILS % (AUTO) 0.5 % (0-1); EOSINOPHILS % (AUTO) 0.6 % (0-6); HEMATOCRIT 26.5 % (42.0-52.0); LYMPHOCYTES # (AUTO) 4.3 X10'3 (1.1-4.8); LYMPHOCYTES % (AUTO) 31.1 % (21-51); MEAN CORPUSCULAR HGB CONC 32.8 g/dL (33.0-36.5); MONOCYTES % (AUTO) 11.2 % (2-12); NEUTROPHILS % (AUTO) 56.6 % (42-75); PLATELET COUNT 220 X10'3 (140-440); RED BLOOD COUNT 3.01 X10'6 (4.70-6.10); RED CELL DISTRIBUTION WIDTH 17.8 % (11.5-14.5)
[2024-03-26 02:49] LABS: ALANINE AMINOTRANSFERASE 27 U/L (12-78); ALBUMIN 2.5 G/DL (3.4-5.0); ALBUMIN/GLOBULIN RATIO 0.7 (1.1-1.5); ALKALINE PHOSPHATASE 65 IU/L (46-116); ANION GAP 6 (8-16); ASPARTATE AMINO TRANSFERASE 18 U/L (10-37); BILIRUBIN,TOTAL 1.2 MG/DL (0.1-1.0); BLOOD UREA NITROGEN 46 MG/DL (7-18); BUN/CREATININE RATIO 52.3 (10.0-20.0); CALCIUM 8.1 MG/DL (8.5-10.1); CHLORIDE 108 MMOL/L (99-107); CREATININE 0.88 MG/DL (0.60-1.10); GLUCOSE 90 MG/DL (70-104); MAGNESIUM 1.4 MG/DL (1.5-2.4); PHOSPHORUS 3.1 MG/DL (2.3-4.5); POTASSIUM 3.7 MMOL/L (3.5-5.1); SODIUM 137 MMOL/L (135-145); TOTAL CARBON DIOXIDE 23.2 MMOL/L (24-32); eCRCL 63 ML/MIN; eGFR 85 ML/MIN
[2024-03-26] MEDS ORDERED: NORepinephrine 8mg/ 250ml NS 250 ML IV PRN (06:10)
[2024-03-26] MEDS ORDERED: MIDAZolam 1 MG/ML 5ML VIAL ONE (06:56)
[2024-03-26] MEDS ORDERED: fentaNYL/PF 50MCG/1 ML 2ML syringe ONE (06:56)
[2024-03-26] MEDS ORDERED: diphenhydrAMINE 50 mg/ml inj ONE (06:57)
[2024-03-26] MEDS ORDERED: epiNEPHrine 0.1mg/ml 10ml syringe ONE (06:57)
[2024-03-26] MEDS ORDERED: LIDOcaine 2% Viscous 15ml cup ONE (06:57)
[2024-03-26] MEDS: magnesium sulf-water 2g/50mL 50 ML IV ONE (07:00)
[2024-03-26] MEDS: dextrose 50%-water 50ml dispensing syringe IV PRN (07:23)
[2024-03-26 07:25] LABS: BASOPHILS # (AUTO) 0.1 X10'3 (0-0.2); BASOPHILS % (AUTO) 0.6 % (0-1); EOSINOPHILS # (AUTO) 0.2 X10'3 (0-0.9); EOSINOPHILS % (AUTO) 1.6 % (0-6); HEMOGLOBIN 8.3 g/dl (14.0-17.9); MEAN CORPUSCULAR HEMOGLOBIN 28.7 PG (27.0-31.0); MEAN PLATELET VOLUME 9.4 FL (7.4-10.4); NEUTROPHILS # (AUTO) 6.4 X10'3 (1.8-7.7)
[2024-03-26 07:26] LABS: HEMATOCRIT 25.4 % (42.0-52.0); LYMPHOCYTES # (AUTO) 4.7 X10'3 (1.1-4.8); LYMPHOCYTES % (AUTO) 36.8 % (21-51); MEAN CORPUSCULAR HGB CONC 32.7 g/dL (33.0-36.5); MEAN CORPUSCULAR VOLUME 87.7 FL (78-98); MONOCYTES # (AUTO) 1.5 X10'3 (0-0.9); MONOCYTES % (AUTO) 11.6 % (2-12); NEUTROPHILS % (AUTO) 49.4 % (42-75); PLATELET COUNT 221 X10'3 (140-440); RED CELL DISTRIBUTION WIDTH 17.8 % (11.5-14.5); WHITE BLOOD COUNT 12.9 X10'3 (4.5-11.0)
[2024-03-26 08:07] LABS: ANISOCYTOSIS 1+; GIANT PLATELET FEW; PLATELET ESTIMATE NORMAL
[2024-03-26 08:13] LABS: ACANTHOCYTES 2+; ELLIPTOCYTES FEW; SCHISTOCYTES 1+
[2024-03-26] MEDS: ipratropium/albuterol 3ml nebule NEB PRN (08:27)
[2024-03-26] MEDS: furosemide 20 MG/2 ML vial IV ONE (08:57)
[2024-03-26 14:25] LABS: BASOPHILS # (AUTO) 0.1 X10'3 (0-0.2); BASOPHILS % (AUTO) 0.7 % (0-1); EOSINOPHILS # (AUTO) 0.3 X10'3 (0-0.9); EOSINOPHILS % (AUTO) 1.7 % (0-6); HEMATOCRIT 27.6 % (42.0-52.0); LYMPHOCYTES # (AUTO) 3.8 X10'3 (1.1-4.8); LYMPHOCYTES % (AUTO) 25.7 % (21-51); MEAN CORPUSCULAR HEMOGLOBIN 28.5 PG (27.0-31.0); MEAN CORPUSCULAR HGB CONC 32.5 g/dL (33.0-36.5); MEAN CORPUSCULAR VOLUME 87.8 FL (78-98); MEAN PLATELET VOLUME 8.9 FL (7.4-10.4); MONOCYTES # (AUTO) 1.6 X10'3 (0-0.9); NEUTROPHILS # (AUTO) 8.9 X10'3 (1.8-7.7); NEUTROPHILS % (AUTO) 60.9 % (42-75); PLATELET COUNT 243 X10'3 (140-440); RED BLOOD COUNT 3.15 X10'6 (4.70-6.10); RED CELL DISTRIBUTION WIDTH 17.8 % (11.5-14.5); WHITE BLOOD COUNT 14.7 X10'3 (4.5-11.0)
[2024-03-26] MEDS: guaiFENesin ER 600mg tablet PO SCH (20:32)
[2024-03-26] MEDS: carVEDilol 12.5mg tablet PO SCH (20:32)
[2024-03-26] MEDS: tamsulosin 0.4mg capsule PO SCH (20:32)
[2024-03-26] MEDS: mirtazapine 15mg tablet PO SCH (20:32)
[2024-03-26] MEDS: insulin glargine (Lantus) pen - multi-dose SQ SCH (22:24)
[2024-03-27] VITALS (8 sets, daily range): BP systolic 94–141; BP diastolic 38–66; PULSE 77–94; RESP 14–18; TEMP 98.1–99.3; O2SAT 91–96
[2024-03-27 00:48] LABS: BASOPHILS # (AUTO) 0.1 X10'3 (0-0.2); BASOPHILS % (AUTO) 0.4 % (0-1); EOSINOPHILS # (AUTO) 0.2 X10'3 (0-0.9); EOSINOPHILS % (AUTO) 1.3 % (0-6); HEMATOCRIT 25.6 % (42.0-52.0); HEMOGLOBIN 8.2 g/dl (14.0-17.9); LYMPHOCYTES # (AUTO) 2.4 X10'3 (1.1-4.8); LYMPHOCYTES % (AUTO) 13.9 % (21-51); MEAN CORPUSCULAR HEMOGLOBIN 28.4 PG (27.0-31.0); MEAN CORPUSCULAR HGB CONC 32.1 g/dL (33.0-36.5); MEAN CORPUSCULAR VOLUME 88.4 FL (78-98); MEAN PLATELET VOLUME 9.2 FL (7.4-10.4); MONOCYTES # (AUTO) 1.4 X10'3 (0-0.9); MONOCYTES % (AUTO) 7.9 % (2-12); NEUTROPHILS # (AUTO) 13.5 X10'3 (1.8-7.7); NEUTROPHILS % (AUTO) 76.5 % (42-75); PLATELET COUNT 238 X10'3 (140-440); RED CELL DISTRIBUTION WIDTH 18.4 % (11.5-14.5); WHITE BLOOD COUNT 17.6 X10'3 (4.5-11.0)
[2024-03-27 03:19] LABS: BASOPHILS # (AUTO) 0.1 X10'3 (0-0.2); BASOPHILS % (AUTO) 0.7 % (0-1); EOSINOPHILS # (AUTO) 0.4 X10'3 (0-0.9); EOSINOPHILS % (AUTO) 2.3 % (0-6); HEMATOCRIT 25.9 % (42.0-52.0); HEMOGLOBIN 8.3 g/dl (14.0-17.9); LYMPHOCYTES # (AUTO) 2.7 X10'3 (1.1-4.8); LYMPHOCYTES % (AUTO) 17.6 % (21-51); MEAN CORPUSCULAR HEMOGLOBIN 28.5 PG (27.0-31.0); MEAN CORPUSCULAR VOLUME 88.9 FL (78-98); MEAN PLATELET VOLUME 8.3 FL (7.4-10.4); MONOCYTES # (AUTO) 1.5 X10'3 (0-0.9); MONOCYTES % (AUTO) 9.5 % (2-12); NEUTROPHILS # (AUTO) 10.7 X10'3 (1.8-7.7); NEUTROPHILS % (AUTO) 69.9 % (42-75); PLATELET COUNT 243 X10'3 (140-440); RED BLOOD COUNT 2.91 X10'6 (4.70-6.10); RED CELL DISTRIBUTION WIDTH 18.5 % (11.5-14.5); WHITE BLOOD COUNT 15.3 X10'3 (4.5-11.0)
[2024-03-27 03:35] LABS: ALANINE AMINOTRANSFERASE 26 U/L (12-78); ALBUMIN 2.6 G/DL (3.4-5.0); ALBUMIN/GLOBULIN RATIO 0.7 (1.1-1.5); ALKALINE PHOSPHATASE 72 IU/L (46-116); ANION GAP 7 (8-16); ASPARTATE AMINO TRANSFERASE 18 U/L (10-37); BILIRUBIN,TOTAL 0.9 MG/DL (0.1-1.0); BLOOD UREA NITROGEN 28 MG/DL (7-18); BUN/CREATININE RATIO 27.2 (10.0-20.0); CALCIUM 8.2 MG/DL (8.5-10.1); CHLORIDE 107 MMOL/L (99-107); CREATININE 1.03 MG/DL (0.60-1.10); GLUCOSE 92 MG/DL (70-104); MAGNESIUM 1.9 MG/DL (1.5-2.4); PHOSPHORUS 3.9 MG/DL (2.3-4.5); POTASSIUM 3.7 MMOL/L (3.5-5.1); SODIUM 138 MMOL/L (135-145); TOTAL CARBON DIOXIDE 23.7 MMOL/L (24-32); TOTAL PROTEIN 6.2 G/DL (6.4-8.2); eCRCL 53 ML/MIN; eGFR 71 ML/MIN
[2024-03-27] MEDS: finasteride 5mg tablet PO SCH (08:00)
[2024-03-27] MEDS: CefTRIAXone/D5W-Rocephin 1gm 50 ML IV SCH (11:48)
[2024-03-27 13:52] LABS: BASOPHILS # (AUTO) 0.1 X10'3 (0-0.2); BASOPHILS % (AUTO) 0.5 % (0-1); EOSINOPHILS # (AUTO) 0.3 X10'3 (0-0.9); EOSINOPHILS % (AUTO) 2.1 % (0-6); HEMATOCRIT 25.3 % (42.0-52.0); LYMPHOCYTES # (AUTO) 2.4 X10'3 (1.1-4.8); LYMPHOCYTES % (AUTO) 19.4 % (21-51); MEAN CORPUSCULAR HEMOGLOBIN 28.7 PG (27.0-31.0); MEAN CORPUSCULAR HGB CONC 31.8 g/dL (33.0-36.5); MEAN CORPUSCULAR VOLUME 90.4 FL (78-98); MEAN PLATELET VOLUME 8.9 FL (7.4-10.4); MONOCYTES # (AUTO) 1.6 X10'3 (0-0.9); MONOCYTES % (AUTO) 12.7 % (2-12); NEUTROPHILS # (AUTO) 8.1 X10'3 (1.8-7.7); NEUTROPHILS % (AUTO) 65.3 % (42-75); PLATELET COUNT 240 X10'3 (140-440); RED CELL DISTRIBUTION WIDTH 18.6 % (11.5-14.5); WHITE BLOOD COUNT 12.4 X10'3 (4.5-11.0)
[2024-03-27] MEDS: insulin glargine (Lantus) pen - multi-dose SQ SCH (20:52)
[2024-03-27] MEDS ORDERED: insulin glargine (Lantus) pen - multi-dose SQ SCH (21:00)
[2024-03-27 21:44] LABS: BASOPHILS # (AUTO) 0.1 X10'3 (0-0.2); BASOPHILS % (AUTO) 0.5 % (0-1); EOSINOPHILS # (AUTO) 0.3 X10'3 (0-0.9); EOSINOPHILS % (AUTO) 2.2 % (0-6); HEMOGLOBIN 8.3 g/dl (14.0-17.9); LYMPHOCYTES # (AUTO) 2.4 X10'3 (1.1-4.8); LYMPHOCYTES % (AUTO) 18.9 % (21-51); MEAN CORPUSCULAR HEMOGLOBIN 28.8 PG (27.0-31.0); MEAN CORPUSCULAR HGB CONC 31.8 g/dL (33.0-36.5); MEAN CORPUSCULAR VOLUME 90.6 FL (78-98); MEAN PLATELET VOLUME 9.2 FL (7.4-10.4); MONOCYTES # (AUTO) 1.9 X10'3 (0-0.9); MONOCYTES % (AUTO) 14.9 % (2-12); NEUTROPHILS # (AUTO) 7.9 X10'3 (1.8-7.7); NEUTROPHILS % (AUTO) 63.5 % (42-75); PLATELET COUNT 246 X10'3 (140-440); RED BLOOD COUNT 2.87 X10'6 (4.70-6.10); RED CELL DISTRIBUTION WIDTH 18.6 % (11.5-14.5); WHITE BLOOD COUNT 12.5 X10'3 (4.5-11.0)
[2024-03-28 04:57] LABS: BASOPHILS % (AUTO) 0.4 % (0-1); EOSINOPHILS # (AUTO) 0.3 X10'3 (0-0.9); EOSINOPHILS % (AUTO) 2.5 % (0-6); HEMATOCRIT 24.8 % (42.0-52.0); LYMPHOCYTES # (AUTO) 2.2 X10'3 (1.1-4.8); LYMPHOCYTES % (AUTO) 21.2 % (21-51); MEAN CORPUSCULAR HEMOGLOBIN 29.2 PG (27.0-31.0); MEAN CORPUSCULAR HGB CONC 32.1 g/dL (33.0-36.5); MEAN PLATELET VOLUME 8.9 FL (7.4-10.4); MONOCYTES # (AUTO) 1.4 X10'3 (0-0.9); MONOCYTES % (AUTO) 13.7 % (2-12); NEUTROPHILS # (AUTO) 6.4 X10'3 (1.8-7.7); NEUTROPHILS % (AUTO) 62.2 % (42-75); PLATELET COUNT 242 X10'3 (140-440); RED BLOOD COUNT 2.73 X10'6 (4.70-6.10); RED CELL DISTRIBUTION WIDTH 18.4 % (11.5-14.5); WHITE BLOOD COUNT 10.2 X10'3 (4.5-11.0)
[2024-03-28 05:09] LABS: ALANINE AMINOTRANSFERASE 22 U/L (12-78); ALBUMIN 2.1 G/DL (3.4-5.0); ALBUMIN/GLOBULIN RATIO 0.6 (1.1-1.5); ALKALINE PHOSPHATASE 68 IU/L (46-116); ANION GAP 9 (8-16); ASPARTATE AMINO TRANSFERASE 18 U/L (10-37); BILIRUBIN,TOTAL 0.8 MG/DL (0.1-1.0); BLOOD UREA NITROGEN 20 MG/DL (7-18); CALCIUM 7.6 MG/DL (8.5-10.1); CHLORIDE 111 MMOL/L (99-107); CREATININE 0.77 MG/DL (0.60-1.10); GLUCOSE 96 MG/DL (70-104); MAGNESIUM 1.6 MG/DL (1.5-2.4); PHOSPHORUS 3.2 MG/DL (2.3-4.5); POTASSIUM 3.1 MMOL/L (3.5-5.1); SODIUM 141 MMOL/L (135-145); TOTAL CARBON DIOXIDE 20.6 MMOL/L (24-32); TOTAL PROTEIN 5.4 G/DL (6.4-8.2); eCRCL 72 ML/MIN; eGFR > 90 ML/MIN
[2024-03-28 06:00] VITALS: BP 111/41; PULSE 93; RESP 16; TEMP 98.2; O2SAT 95
[2024-03-28 07:35] VITALS: RESP 16; O2SAT 95
[2024-03-28] MEDS: K and/or MAG REPLACEMENT MC SCH (08:00)
[2024-03-28] MEDS ORDERED: magnesium sulf-water 2g/50mL 50 ML IV PRN (08:00)
[2024-03-28] MEDS ORDERED: potassium Cl 20 mEq SR tablet PO PRN (08:00)
[2024-03-28] MEDS ORDERED: magnesium sulf-water 4G/100mL 100 ML IV PRN (08:00)
[2024-03-28] MEDS: potassium Cl 20 mEq SR tablet PO PRN (08:52)
[2024-03-28] MEDS: azithromycin/NS 500mg/250ml 250 ML IV SCH (08:58)
[2024-03-28 08:59] VITALS: PULSE 84; RESP 20; O2SAT 94
[2024-03-28] MEDS: PEG 3350/Na sulf,bicarb,Cl/KCl oral sol 4 liter bottle PO ONE (09:50)
[2024-03-28] MEDS ORDERED: dextrose 5%-water 1,000 ML IV SCH (12:25)
[2024-03-28] MEDS: normal saline 1000ml 1,000 ML IV SCH (12:40)
[2024-03-28 15:37] VITALS: PULSE 77; RESP 20; O2SAT 95
[2024-03-28 20:00] VITALS: RESP 18; O2SAT 96
[2024-03-28 21:09] VITALS: PULSE 77; RESP 16; O2SAT 95
[2024-03-28] MEDS: HYDROcodone/acetaminophen 5mg/325mg tablet PO PRN (22:02)
[2024-03-29] MEDS ORDERED: dextrose 5%-water 1,000 ML IV SCH (00:30)
[2024-03-29 06:00] VITALS: BP 111/70; PULSE 82; RESP 16; TEMP 98.2; O2SAT 93
[2024-03-29 06:00] LABS: BASOPHILS # (AUTO) 0.1 X10'3 (0-0.2); BASOPHILS % (AUTO) 0.6 % (0-1); EOSINOPHILS # (AUTO) 0.3 X10'3 (0-0.9); EOSINOPHILS % (AUTO) 2.9 % (0-6); HEMATOCRIT 23.5 % (42.0-52.0); HEMOGLOBIN 7.6 g/dl (14.0-17.9); LYMPHOCYTES # (AUTO) 2.8 X10'3 (1.1-4.8); LYMPHOCYTES % (AUTO) 30.2 % (21-51); MEAN CORPUSCULAR HEMOGLOBIN 29.4 PG (27.0-31.0); MEAN CORPUSCULAR HGB CONC 32.3 g/dL (33.0-36.5); MEAN CORPUSCULAR VOLUME 90.9 FL (78-98); MEAN PLATELET VOLUME 9.4 FL (7.4-10.4); MONOCYTES # (AUTO) 1.4 X10'3 (0-0.9); MONOCYTES % (AUTO) 15.1 % (2-12); NEUTROPHILS # (AUTO) 4.7 X10'3 (1.8-7.7); NEUTROPHILS % (AUTO) 51.2 % (42-75); PLATELET COUNT 240 X10'3 (140-440); RED BLOOD COUNT 2.58 X10'6 (4.70-6.10); RED CELL DISTRIBUTION WIDTH 18.9 % (11.5-14.5); WHITE BLOOD COUNT 9.1 X10'3 (4.5-11.0)
[2024-03-29 06:23] LABS: ALANINE AMINOTRANSFERASE 22 U/L (12-78); ALBUMIN 2.3 G/DL (3.4-5.0); ALBUMIN/GLOBULIN RATIO 0.7 (1.1-1.5); ALKALINE PHOSPHATASE 64 IU/L (46-116); ANION GAP 10 (8-16); ASPARTATE AMINO TRANSFERASE 22 U/L (10-37); BILIRUBIN,TOTAL 0.6 MG/DL (0.1-1.0); BLOOD UREA NITROGEN 14 MG/DL (7-18); BUN/CREATININE RATIO 16.9 (10.0-20.0); CHLORIDE 111 MMOL/L (99-107); CREATININE 0.83 MG/DL (0.60-1.10); GLUCOSE 111 MG/DL (70-104); MAGNESIUM 1.6 MG/DL (1.5-2.4); PHOSPHORUS 2.4 MG/DL (2.3-4.5); POTASSIUM 3.7 MMOL/L (3.5-5.1); SODIUM 142 MMOL/L (135-145); TOTAL CARBON DIOXIDE 20.6 MMOL/L (24-32); TOTAL PROTEIN 5.8 G/DL (6.4-8.2); eCRCL 66 ML/MIN; eGFR > 90 ML/MIN
[2024-03-29 07:25] LABS: ACANTHOCYTES 1+; PLATELET ESTIMATE NORMAL; POLYCHROMASIA FEW
[2024-03-29 07:26] LABS: ANISOCYTOSIS 2+; POIKILOCYTOSIS FEW
[2024-03-29 07:27] VITALS: PULSE 74; RESP 16; O2SAT 96
[2024-03-29 08:00] VITALS: RESP 16; O2SAT 93
[2024-03-29] MEDS: aspirin 81mg, enteric-coated 1 TAB TABLET.DR PO SCH (08:29)
[2024-03-29] MEDS: lisinopril 2.5mg tablet PO SCH (08:29)
[2024-03-29] MEDS ORDERED: proCHLORperazine 10 MG/2 ml inj IV PRN (09:55)
[2024-03-29 15:04] LABS: HEMATOCRIT 24.9 % (42.0-52.0); HEMOGLOBIN 7.9 g/dl (14.0-17.9); MEAN CORPUSCULAR HEMOGLOBIN 29.1 PG (27.0-31.0); MEAN CORPUSCULAR HGB CONC 31.6 g/dL (33.0-36.5); MEAN CORPUSCULAR VOLUME 92.1 FL (78-98); MEAN PLATELET VOLUME 9.1 FL (7.4-10.4); PLATELET COUNT 246 X10'3 (140-440); RED BLOOD COUNT 2.71 X10'6 (4.70-6.10); RED CELL DISTRIBUTION WIDTH 19.8 % (11.5-14.5); WHITE BLOOD COUNT 7.3 X10'3 (4.5-11.0)
[2024-03-29] MEDS: PEG 3350/Na sulf,bicarb,Cl/KCl oral sol 4 liter bottle PO ONE (15:44)
[2024-03-29] MEDS: ondansetron/PF 4mg/2ml inj IV PRN (15:44)
[2024-03-29] MEDS ORDERED: rivaroxaban 20mg tablet PO SCH (17:00)
[2024-03-29 18:00] VITALS: BP 96/62; PULSE 81; RESP 16; TEMP 98.2; O2SAT 96
[2024-03-29 20:00] VITALS: RESP 16; O2SAT 96
[2024-03-29] MEDS: Dextrose 10%-water IV solution 1,000 ML IV SCH (21:27)
[2024-03-29 22:00] VITALS: BP 112/69; PULSE 73; RESP 18; TEMP 98; O2SAT 93
[2024-03-30] VITALS (14 sets, daily range): BP systolic 96–160; BP diastolic 28–80; PULSE 77–98; RESP 12–20; TEMP 97.7–99; O2SAT 95–100
[2024-03-30 05:01] LABS: BASOPHILS % (AUTO) 0.5 % (0-1); EOSINOPHILS # (AUTO) 0.3 X10'3 (0-0.9); HEMOGLOBIN 8.3 g/dl (14.0-17.9); LYMPHOCYTES # (AUTO) 1.9 X10'3 (1.1-4.8); MEAN CORPUSCULAR HGB CONC 31.8 g/dL (33.0-36.5); MEAN PLATELET VOLUME 9.2 FL (7.4-10.4); RED BLOOD COUNT 2.84 X10'6 (4.70-6.10)
[2024-03-30 05:03] LABS: EOSINOPHILS % (AUTO) 2.9 % (0-6); LYMPHOCYTES % (AUTO) 21.3 % (21-51); MEAN CORPUSCULAR HEMOGLOBIN 29.1 PG (27.0-31.0); MEAN CORPUSCULAR VOLUME 91.4 FL (78-98); MONOCYTES # (AUTO) 0.9 X10'3 (0-0.9); MONOCYTES % (AUTO) 10.1 % (2-12); NEUTROPHILS % (AUTO) 65.2 % (42-75); PLATELET COUNT 272 X10'3 (140-440); RED CELL DISTRIBUTION WIDTH 19.8 % (11.5-14.5); WHITE BLOOD COUNT 9.2 X10'3 (4.5-11.0)
[2024-03-30 05:27] LABS: ALANINE AMINOTRANSFERASE 26 U/L (12-78); ALBUMIN 2.2 G/DL (3.4-5.0); ALBUMIN/GLOBULIN RATIO 0.6 (1.1-1.5); ALKALINE PHOSPHATASE 76 IU/L (46-116); ANION GAP 12 (8-16); ASPARTATE AMINO TRANSFERASE 21 U/L (10-37); BILIRUBIN,TOTAL 0.6 MG/DL (0.1-1.0); BLOOD UREA NITROGEN 9 MG/DL (7-18); BUN/CREATININE RATIO 12.2 (10.0-20.0); CALCIUM 8.1 MG/DL (8.5-10.1); CHLORIDE 110 MMOL/L (99-107); CREATININE 0.74 MG/DL (0.60-1.10); GLUCOSE 118 MG/DL (70-104); MAGNESIUM 1.5 MG/DL (1.5-2.4); PHOSPHORUS 2.9 MG/DL (2.3-4.5); SODIUM 143 MMOL/L (135-145); TOTAL CARBON DIOXIDE 21.3 MMOL/L (24-32); TOTAL PROTEIN 5.8 G/DL (6.4-8.2); eCRCL 74 ML/MIN; eGFR > 90 ML/MIN
[2024-03-30 06:02] LABS: ANISOCYTOSIS 2+; PLATELET ESTIMATE NORMAL; POIKILOCYTOSIS 1+
[2024-03-30 06:03] LABS: ACANTHOCYTES 1+; BURR CELLS 1+; LARGE PLATELETS FEW
[2024-03-30] MEDS ORDERED: MIDAZolam 1 MG/ML 5ML VIAL ONE (07:43)
[2024-03-30] MEDS ORDERED: fentaNYL/PF 50MCG/1 ML 2ML syringe ONE (07:43)
[2024-03-30] MEDS ORDERED: diphenhydrAMINE 50 mg/ml inj ONE (07:43)
[2024-03-30] MEDS ORDERED: LIDOcaine 2% Viscous 15ml cup ONE (07:43)
[2024-03-30] MEDS ORDERED: simethicone 40mg/0.6ml oral drops 30ml ONE (09:00)
[2024-03-30] MEDS: potassium Cl 40MEQ/1/2NS 520ml 520 ML IV PRN (10:17)
[2024-03-30] MEDS: morphine 4 MG/ML inj SYRINge IV PRN (19:41)
[2024-03-30] MEDS: pantoprazole 40mg Tablet.DR PO SCH (21:49)
[2024-03-30] MEDS: carvedilol 6.25mg tablet PO SCH (21:51)
[2024-03-31] VITALS (11 sets, daily range): BP systolic 97–132; BP diastolic 42–69; PULSE 64–92; RESP 12–20; TEMP 98.1–99.4; O2SAT 92–97
[2024-03-31 04:17] LABS: BASOPHILS % (AUTO) 0.4 % (0-1); EOSINOPHILS # (AUTO) 0.2 X10'3 (0-0.9); EOSINOPHILS % (AUTO) 1.8 % (0-6); HEMATOCRIT 25.2 % (42.0-52.0); HEMOGLOBIN 8.2 g/dl (14.0-17.9); LYMPHOCYTES # (AUTO) 2.3 X10'3 (1.1-4.8); LYMPHOCYTES % (AUTO) 23.7 % (21-51); MEAN CORPUSCULAR HEMOGLOBIN 29.1 PG (27.0-31.0); MEAN CORPUSCULAR HGB CONC 32.4 g/dL (33.0-36.5); MEAN CORPUSCULAR VOLUME 89.9 FL (78-98); MONOCYTES # (AUTO) 1.5 X10'3 (0-0.9); MONOCYTES % (AUTO) 15.7 % (2-12); NEUTROPHILS # (AUTO) 5.7 X10'3 (1.8-7.7); NEUTROPHILS % (AUTO) 58.4 % (42-75); PLATELET COUNT 281 X10'3 (140-440); RED BLOOD COUNT 2.81 X10'6 (4.70-6.10); RED CELL DISTRIBUTION WIDTH 20.4 % (11.5-14.5); WHITE BLOOD COUNT 9.7 X10'3 (4.5-11.0)
[2024-03-31 04:32] LABS: ALANINE AMINOTRANSFERASE 18 U/L (12-78); ALBUMIN/GLOBULIN RATIO 0.6 (1.1-1.5); ALKALINE PHOSPHATASE 70 IU/L (46-116); ANION GAP 8 (8-16); ASPARTATE AMINO TRANSFERASE 13 U/L (10-37); BILIRUBIN,TOTAL 0.3 MG/DL (0.1-1.0); BLOOD UREA NITROGEN 7 MG/DL (7-18); BUN/CREATININE RATIO 8.6 (10.0-20.0); CALCIUM 7.8 MG/DL (8.5-10.1); CHLORIDE 109 MMOL/L (99-107); CREATININE 0.81 MG/DL (0.60-1.10); GLUCOSE 159 MG/DL (70-104); MAGNESIUM 1.4 MG/DL (1.5-2.4); PHOSPHORUS 2.9 MG/DL (2.3-4.5); POTASSIUM 3.8 MMOL/L (3.5-5.1); SODIUM 138 MMOL/L (135-145); TOTAL CARBON DIOXIDE 20.6 MMOL/L (24-32); TOTAL PROTEIN 5.5 G/DL (6.4-8.2); eCRCL 68 ML/MIN; eGFR > 90 ML/MIN
[2024-03-31 04:57] LABS: PLATELET ESTIMATE NORMAL; POIKILOCYTOSIS FEW
[2024-03-31 04:58] LABS: ACANTHOCYTES 2+; ANISOCYTOSIS 3+; ROULEAUX 1+
[2024-03-31 05:01] LABS: BURR CELLS 1+
[2024-03-31] MEDS: aspirin 81mg tab.chew PO SCH (08:34)
[2024-03-31] MEDS ORDERED: potassium Cl 20 mEq SR tablet PO PRN ×2 (08:40)
[2024-03-31] MEDS ORDERED: potassium Cl 40MEQ/1/2NS 520ml 520 ML IV PRN (08:40)
[2024-03-31] MEDS ORDERED: magnesium sulf-water 2g/50mL 50 ML IV PRN (08:40)
[2024-03-31] MEDS ORDERED: magnesium sulf-water 4G/100mL 100 ML IV PRN (08:40)
[2024-03-31] MEDS: magnesium Cl slow-release 64mg tablet PO PRN (09:50)
[2024-03-31] MEDS: apixaban 5mg tablet PO SCH (13:47)
[2024-03-31] MEDS: albuterol 2.5 MG/3 ML nebule NEB PRN (13:50)
[2024-04-01] VITALS (11 sets, daily range): BP systolic 116–126; BP diastolic 61–71; PULSE 75–96; RESP 13–22; TEMP 97.4–98.9; O2SAT 94–98
[2024-04-01 05:16] LABS: BASOPHILS # (AUTO) 0.1 X10'3 (0-0.2); BASOPHILS % (AUTO) 0.7 % (0-1); EOSINOPHILS # (AUTO) 0.2 X10'3 (0-0.9); EOSINOPHILS % (AUTO) 2.7 % (0-6); HEMATOCRIT 24.7 % (42.0-52.0); HEMOGLOBIN 7.9 g/dl (14.0-17.9); LYMPHOCYTES # (AUTO) 2.7 X10'3 (1.1-4.8); LYMPHOCYTES % (AUTO) 29.1 % (21-51); MEAN CORPUSCULAR HEMOGLOBIN 29.4 PG (27.0-31.0); MEAN CORPUSCULAR HGB CONC 32.2 g/dL (33.0-36.5); MEAN CORPUSCULAR VOLUME 91.4 FL (78-98); MEAN PLATELET VOLUME 8.7 FL (7.4-10.4); MONOCYTES # (AUTO) 1.5 X10'3 (0-0.9); MONOCYTES % (AUTO) 16.1 % (2-12); NEUTROPHILS # (AUTO) 4.8 X10'3 (1.8-7.7); NEUTROPHILS % (AUTO) 51.4 % (42-75); PLATELET COUNT 295 X10'3 (140-440); RED CELL DISTRIBUTION WIDTH 20.2 % (11.5-14.5); WHITE BLOOD COUNT 9.2 X10'3 (4.5-11.0)
[2024-04-01 05:35] LABS: ALANINE AMINOTRANSFERASE 17 U/L (12-78); ALBUMIN 2.1 G/DL (3.4-5.0); ALBUMIN/GLOBULIN RATIO 0.6 (1.1-1.5); ALKALINE PHOSPHATASE 65 IU/L (46-116); ANION GAP 8 (8-16); ASPARTATE AMINO TRANSFERASE 17 U/L (10-37); BILIRUBIN,TOTAL 0.4 MG/DL (0.1-1.0); BLOOD UREA NITROGEN 6 MG/DL (7-18); BUN/CREATININE RATIO 7.4 (10.0-20.0); CALCIUM 8.4 MG/DL (8.5-10.1); CHLORIDE 109 MMOL/L (99-107); CREATININE 0.81 MG/DL (0.60-1.10); GLUCOSE 111 MG/DL (70-104); MAGNESIUM 1.5 MG/DL (1.5-2.4); PHOSPHORUS 3.5 MG/DL (2.3-4.5); POTASSIUM 3.8 MMOL/L (3.5-5.1); SODIUM 139 MMOL/L (135-145); TOTAL CARBON DIOXIDE 22.4 MMOL/L (24-32); TOTAL PROTEIN 5.8 G/DL (6.4-8.2); eCRCL 68 ML/MIN; eGFR > 90 ML/MIN
[2024-04-01] MEDS: morphine 2 MG/ML inj. syringe IV PRN (15:00)
[2024-04-02] VITALS (8 sets, daily range): BP systolic 105–136; BP diastolic 55–80; PULSE 66–94; RESP 13–18; TEMP 97.8–98.5; O2SAT 91–98
[2024-04-02 05:11] LABS: BASOPHILS # (AUTO) 0.1 X10'3 (0-0.2); BASOPHILS % (AUTO) 0.5 % (0-1); EOSINOPHILS # (AUTO) 0.2 X10'3 (0-0.9); EOSINOPHILS % (AUTO) 1.7 % (0-6); HEMATOCRIT 24.8 % (42.0-52.0); HEMOGLOBIN 7.8 g/dl (14.0-17.9); LYMPHOCYTES # (AUTO) 2.5 X10'3 (1.1-4.8); MEAN CORPUSCULAR HEMOGLOBIN 28.5 PG (27.0-31.0); MEAN CORPUSCULAR HGB CONC 31.5 g/dL (33.0-36.5); MEAN CORPUSCULAR VOLUME 90.4 FL (78-98); MEAN PLATELET VOLUME 8.9 FL (7.4-10.4); MONOCYTES # (AUTO) 1.6 X10'3 (0-0.9); MONOCYTES % (AUTO) 14.1 % (2-12); NEUTROPHILS # (AUTO) 7.3 X10'3 (1.8-7.7); NEUTROPHILS % (AUTO) 62.7 % (42-75); PLATELET COUNT 355 X10'3 (140-440); RED BLOOD COUNT 2.74 X10'6 (4.70-6.10); RED CELL DISTRIBUTION WIDTH 20.1 % (11.5-14.5); WHITE BLOOD COUNT 11.7 X10'3 (4.5-11.0)
[2024-04-02 05:33] LABS: ALANINE AMINOTRANSFERASE 15 U/L (12-78); ALBUMIN/GLOBULIN RATIO 0.5 (1.1-1.5); ALKALINE PHOSPHATASE 68 IU/L (46-116); ANION GAP 9 (8-16); ASPARTATE AMINO TRANSFERASE 11 U/L (10-37); BILIRUBIN,TOTAL 0.4 MG/DL (0.1-1.0); BLOOD UREA NITROGEN 12 MG/DL (7-18); BUN/CREATININE RATIO 15.6 (10.0-20.0); CALCIUM 8.5 MG/DL (8.5-10.1); CHLORIDE 106 MMOL/L (99-107); CREATININE 0.77 MG/DL (0.60-1.10); GLUCOSE 139 MG/DL (70-104); MAGNESIUM 1.6 MG/DL (1.5-2.4); PHOSPHORUS 3.6 MG/DL (2.3-4.5); POTASSIUM 3.9 MMOL/L (3.5-5.1); SODIUM 136 MMOL/L (135-145); TOTAL CARBON DIOXIDE 21.2 MMOL/L (24-32); TOTAL PROTEIN 6.1 G/DL (6.4-8.2); eCRCL 72 ML/MIN; eGFR > 90 ML/MIN
[2024-04-03 04:03] VITALS: PULSE 68; RESP 16; O2SAT 97
[2024-04-03 06:54] LABS: BASOPHILS # (AUTO) 0.1 X10'3 (0-0.2); BASOPHILS % (AUTO) 0.6 % (0-1); EOSINOPHILS # (AUTO) 0.3 X10'3 (0-0.9); HEMATOCRIT 25.3 % (42.0-52.0); HEMOGLOBIN 8.1 g/dl (14.0-17.9); LYMPHOCYTES # (AUTO) 2.7 X10'3 (1.1-4.8); LYMPHOCYTES % (AUTO) 27.3 % (21-51); MEAN CORPUSCULAR HEMOGLOBIN 28.9 PG (27.0-31.0); MEAN CORPUSCULAR VOLUME 90.2 FL (78-98); MEAN PLATELET VOLUME 9.5 FL (7.4-10.4); MONOCYTES # (AUTO) 1.3 X10'3 (0-0.9); MONOCYTES % (AUTO) 13.1 % (2-12); NEUTROPHILS # (AUTO) 5.6 X10'3 (1.8-7.7); PLATELET COUNT 407 X10'3 (140-440); RED CELL DISTRIBUTION WIDTH 19.2 % (11.5-14.5); WHITE BLOOD COUNT 9.9 X10'3 (4.5-11.0)
[2024-04-03 07:14] LABS: ALANINE AMINOTRANSFERASE 29 U/L (12-78); ALBUMIN/GLOBULIN RATIO 0.5 (1.1-1.5); ALKALINE PHOSPHATASE 67 IU/L (46-116); ANION GAP 8 (8-16); ASPARTATE AMINO TRANSFERASE 32 U/L (10-37); BILIRUBIN,TOTAL 0.3 MG/DL (0.1-1.0); BLOOD UREA NITROGEN 11 MG/DL (7-18); BUN/CREATININE RATIO 14.1 (10.0-20.0); CALCIUM 8.5 MG/DL (8.5-10.1); CHLORIDE 107 MMOL/L (99-107); CREATININE 0.78 MG/DL (0.60-1.10); GLUCOSE 147 MG/DL (70-104); MAGNESIUM 1.4 MG/DL (1.5-2.4); PHOSPHORUS 3.7 MG/DL (2.3-4.5); POTASSIUM 3.8 MMOL/L (3.5-5.1); SODIUM 139 MMOL/L (135-145); TOTAL CARBON DIOXIDE 23.6 MMOL/L (24-32); TOTAL PROTEIN 6.1 G/DL (6.4-8.2); eCRCL 71 ML/MIN; eGFR > 90 ML/MIN
[2024-04-03 09:56] VITALS: BP_SYST 111; PULSE 88
[2024-04-03] MEDS ORDERED: PANT40TA54 PO (13:59)
[2024-04-03] MEDS ORDERED: CARV6.253 PO (13:59)
[2024-04-03] MEDS ORDERED: APIX5TAB3 PO (13:59)
[2024-04-03] MEDS ORDERED: LISI2.5T14 PO (13:59)
[2024-04-03] MEDS ORDERED: magnesium Cl slow-release 64mg tablet PO PRN (14:00)
[2024-04-03] MEDS ORDERED: magnesium sulf-water 2g/50mL 50 ML IV PRN (14:00)
[2024-04-03] MEDS ORDERED: magnesium sulf-water 4G/100mL 100 ML IV PRN (14:00)
[2024-04-03] MEDS ORDERED: FERR324T4 PO (14:04)
[2024-04-04] MEDS ORDERED: K and/or MAG REPLACEMENT MC SCH (08:00)
[2024-04-06] MEDS ORDERED: apixaban 5mg tablet PO SCH (20:00)
[2024-04-12] MEDS ORDERED: LANTUS SUBCUT (22:17)
[2024-04-12] MEDS ORDERED: TIZA4CAP PO (22:17)
[2024-04-12] MEDS ORDERED: ATOR80TA PO (22:17)
== END 2024-04-03 15:55 | disposition home health service (06) | DRG 377 ==
LOC: ER 12:22 → CICU 2S 14:58 → SUR 3N 03-26 17:21
PROVIDERS: ADMIT Internal Medicine Critical Care Medicine; ATTEND Internal Medicine Critical Care Medicine
PROC: 30233N1 Transfusion of Nonautologous Red Blood Cells into Peripheral Vein, Percutaneous Approach (ICD-10-PCS; principal; 2024-03-25)
PROC: 02HV33Z Insertion of Infusion Device into Superior Vena Cava, Percutaneous Approach (ICD-10-PCS; 2024-03-25)
PROC: 05HF33Z Insertion of Infusion Device into Left Cephalic Vein, Percutaneous Approach (ICD-10-PCS; 2024-03-25)
PROC: B54NZZA Ultrasonography of Left Upper Extremity Veins, Guidance (ICD-10-PCS; 2024-03-25)
PROC: 0DB68ZX Excision of Stomach, Via Natural or Artificial Opening Endoscopic, Diagnostic (ICD-10-PCS; 2024-03-30)
PROC: 0DB78ZX Excision of Stomach, Pylorus, Via Natural or Artificial Opening Endoscopic, Diagnostic (ICD-10-PCS; 2024-03-30)
PROC: 0DJD8ZZ Inspection of Lower Intestinal Tract, Via Natural or Artificial Opening Endoscopic (ICD-10-PCS; 2024-03-30)
DX: K29.01 Acute gastritis with bleeding (principal); I21.A1 Myocardial infarction type 2; I50.23 Acute on chronic systolic (congestive) heart failure; R57.1 Hypovolemic shock; N17.0 Acute kidney failure with tubular necrosis; N39.0 Urinary tract infection, site not specified; K55.1 Chronic vascular disorders of intestine; I82.A11 Acute embolism and thrombosis of right axillary vein; I82.611 Acute embolism and thrombosis of superficial veins of right upper extremity; I69.354 Hemiplegia and hemiparesis following cerebral infarction affecting left non-dominant side; I82.C21 Chronic embolism and thrombosis of right internal jugular vein; R65.10 Systemic inflammatory response syndrome (SIRS) of non-infectious origin without acute organ dysfunction; D64.9 Anemia, unspecified; I11.0 Hypertensive heart disease with heart failure; I34.0 Nonrheumatic mitral (valve) insufficiency; N40.0 Benign prostatic hyperplasia without lower urinary tract symptoms; B37.9 Candidiasis, unspecified; I25.10 Atherosclerotic heart disease of native coronary artery without angina pectoris; K59.00 Constipation, unspecified; E87.6 Hypokalemia; E11.51 Type 2 diabetes mellitus with diabetic peripheral angiopathy without gangrene; Z95.1 Presence of aortocoronary bypass graft; Z95.0 Presence of cardiac pacemaker; Z90.49 Acquired absence of other specified parts of digestive tract; Z85.038 Personal history of other malignant neoplasm of large intestine; Z79.01 Long term (current) use of anticoagulants; I25.2 Old myocardial infarction; Z79.4 Long term (current) use of insulin; Z88.1 Allergy status to other antibiotic agents; Z88.8 Allergy status to other drugs, medicaments and biological substances; D63.8 Anemia in other chronic diseases classified elsewhere
CPT/HCPCS: 36410; 36415; 36430; 43239; 45378; 71045; 73070; 76937; 78278; 80048; 80053; 80320; 81001; 82272; 82948; 83605; 83690; 83735; 83880; 84100; 84145; 84443; 84484; 85008; 85025; 85027; 85610; 85730; 86885; 86900; 86901; 86920; 87081; 87088; 87811; 93005; 93925; 93970; 93971; 94640; 94760; 97161; 97530; 99152; 99153; 99291; A4346; A4615; A4620; A6212; A6213; A6258; A6402; A6449; A9560; C1751; C1758; G0378; J0171; J0456; J0696; J1200; J1815; J1940; J2250; J2270; J2354; J2405; J2470; J3010; J3480; J3490; J7030; J7040; J7050; J7060; P9016

== ENCOUNTER 2024-11-06 09:08 | Emergency (ER) | payer OTHER, MEDICARE ==
[~2024-11-06] VITALS: Ht 162.6 cm; Wt 70.5 kg
[~2024-11-06 09:08] MED LIST changes: -ASPI-612 PO; -ATOR-2 PO; +ATOR-429 PO; -CARV-50 PO; +INSU100V55 SQ; +METO50TA16 PO; -MULT-1085 PO; +PANT-47 PO; +POLY17PO10 PO; -RIVA20TA PO; +SENN-360 PO
[2024-11-06 09:18] VITALS: TEMP 97.8
[2024-11-06 10:42] LABS: BASOPHILS % (AUTO) 0.4 % (0-1); EOSINOPHILS # (AUTO) 0.8 X10'3 (0-0.9); EOSINOPHILS % (AUTO) 7.8 % (0-6); HEMATOCRIT 35.3 % (42.0-52.0); HEMOGLOBIN 11.6 g/dl (14.0-17.9); LYMPHOCYTES # (AUTO) 3.1 X10'3 (1.1-4.8); LYMPHOCYTES % (AUTO) 31.3 % (21-51); MEAN CORPUSCULAR HEMOGLOBIN 30.7 PG (27.0-31.0); MEAN CORPUSCULAR VOLUME 93.1 FL (78-98); MEAN PLATELET VOLUME 10.1 FL (7.4-10.4); MONOCYTES # (AUTO) 1.2 X10'3 (0-0.9); MONOCYTES % (AUTO) 12.4 % (2-12); NEUTROPHILS # (AUTO) 4.8 X10'3 (1.8-7.7); NEUTROPHILS % (AUTO) 48.1 % (42-75); PLATELET COUNT 270 X10'3 (140-440); RED BLOOD COUNT 3.79 X10'6 (4.70-6.10); RED CELL DISTRIBUTION WIDTH 15.8 % (11.5-14.5); WHITE BLOOD COUNT 9.9 X10'3 (4.5-11.0)
[2024-11-06 10:50] LABS: BILIRUBIN,URINE NEGATIVE (Neg); CLARITY,URINE CLOUDY (Clear); COLOR,URINE YELLOW (Yellow); GLUCOSE, URINE NEGATIVE (Neg); KETONES,URINE NEGATIVE (Neg); LEUKOCYTE ESTERASE ,URINE MODERATE (Neg); NITRITES, URINE NEGATIVE (Neg); OCCULT BLOOD,URINE MODERATE (Neg); PROTEIN,URINE NEGATIVE (Neg); UA COLLECTION TYPE URINAL; UROBILINOGEN,URINE 0.2 E.U/dL (0.2-1.0)
[2024-11-06 10:56] LABS: WBC,URINE TNTC /HPF (0-4)
[2024-11-06 10:57] LABS: BACTERIA,URINE 2+ /HPF (Neg); SQUAMOUS EPITHELIAL CELL,UR FEW /LPF (FEW)
[2024-11-06 10:57] LABS: ALANINE AMINOTRANSFERASE 25 U/L (12-78); ALBUMIN 3.1 G/DL (3.4-5.0); ALBUMIN/GLOBULIN RATIO 0.6 (1.1-1.5); ALKALINE PHOSPHATASE 129 IU/L (46-116); ANION GAP 8 (8-16); ASPARTATE AMINO TRANSFERASE 23 U/L (10-37); BILIRUBIN,TOTAL 0.4 MG/DL (0.1-1.0); BLOOD UREA NITROGEN 23 MG/DL (7-18); CHLORIDE 104 MMOL/L (99-107); CREATININE 0.96 MG/DL (0.60-1.10); GLUCOSE 139 MG/DL (70-104); LIPASE 21 U/L (16-77); POTASSIUM 4.3 MMOL/L (3.5-5.1); SODIUM 139 MMOL/L (135-145); TOTAL CARBON DIOXIDE 27.1 MMOL/L (24-32); TOTAL PROTEIN 8.3 G/DL (6.4-8.2); eCRCL 57 ML/MIN; eGFR 77 ML/MIN
[2024-11-06] MEDS ORDERED: SULF1TAB49 PO (12:50)
[2024-11-06 12:58] VITALS: BP 98/118; PULSE 60; RESP 12; O2SAT 96
== END 2024-11-06 13:00 | disposition home or self-care (01) ==
LOC: ER 09:09
DX: N39.0 Urinary tract infection, site not specified (principal); I25.10 Atherosclerotic heart disease of native coronary artery without angina pectoris; E11.9 Type 2 diabetes mellitus without complications; I10 Essential (primary) hypertension; I25.2 Old myocardial infarction; Z88.1 Allergy status to other antibiotic agents; Z79.899 Other long term (current) drug therapy; Z86.73 Personal history of transient ischemic attack (TIA), and cerebral infarction without residual deficits; Z95.0 Presence of cardiac pacemaker; Z95.1 Presence of aortocoronary bypass graft; Z85.038 Personal history of other malignant neoplasm of large intestine
CPT/HCPCS: 36415; 80053; 81001; 83690; 85025; 87088; 99284

== ENCOUNTER 2024-11-22 11:19 | Inpatient (IN) | payer OTHER, MEDICARE ==
[~2024-11-22] VITALS: Ht 162.6 cm; Wt 64.5 kg
[~2024-11-22 11:19] MED LIST changes: -FLO0.4C PO; -METO50TA16 PO; +TAMS-55 PO
[2024-11-22 14:12] LABS: BASOPHILS # (AUTO) 0.1 X10'3 (0-0.2); HEMOGLOBIN 11.9 g/dl (14.0-17.9); WHITE BLOOD COUNT 10.3 X10'3 (4.5-11.0)
[2024-11-22 14:13] LABS: BASOPHILS % (AUTO) 0.6 % (0-1); EOSINOPHILS # (AUTO) 0.3 X10'3 (0-0.9); EOSINOPHILS % (AUTO) 3.1 % (0-6); HEMATOCRIT 36.1 % (42.0-52.0); LYMPHOCYTES # (AUTO) 2.2 X10'3 (1.1-4.8); LYMPHOCYTES % (AUTO) 21.6 % (21-51); MEAN CORPUSCULAR HEMOGLOBIN 29.8 PG (27.0-31.0); MEAN CORPUSCULAR HGB CONC 32.8 g/dL (33.0-36.5); MEAN CORPUSCULAR VOLUME 90.9 FL (78-98); MEAN PLATELET VOLUME 9.3 FL (7.4-10.4); MONOCYTES % (AUTO) 9.4 % (2-12); NEUTROPHILS # (AUTO) 6.7 X10'3 (1.8-7.7); NEUTROPHILS % (AUTO) 65.3 % (42-75); PLATELET COUNT 298 X10'3 (140-440); RED BLOOD COUNT 3.97 X10'6 (4.70-6.10); RED CELL DISTRIBUTION WIDTH 15.7 % (11.5-14.5)
[2024-11-22 15:05] LABS: ALBUMIN 3.1 G/DL (3.4-5.0); ANION GAP 6 (8-16); BLOOD UREA NITROGEN 19 MG/DL (7-18); BUN/CREATININE RATIO 19.8 (10.0-20.0); CALCIUM 9.1 MG/DL (8.5-10.1); CHLORIDE 104 MMOL/L (99-107); CREATININE 0.96 MG/DL (0.60-1.10); GLUCOSE 202 MG/DL (70-104); POTASSIUM 4.3 MMOL/L (3.5-5.1); PRO BRAIN NATRIURETIC PEPTIDE 3009 PG/ML (0-125); SODIUM 138 MMOL/L (135-145); TOTAL CARBON DIOXIDE 28.1 MMOL/L (24-32); eCRCL 57 ML/MIN; eGFR 77 ML/MIN
[2024-11-22] MEDS ORDERED: magnesium sulf-water 2g/50mL 50 ML IV PRN (17:25)
[2024-11-22] MEDS ORDERED: magnesium sulf-water 4G/100mL 100 ML IV PRN (17:25)
[2024-11-22] MEDS ORDERED: potassium Cl 40MEQ/1/2NS 520ml 520 ML IV PRN (17:25)
[2024-11-22] MEDS ORDERED: morphine 2 MG/ML inj. syringe IV PRN (17:25)
[2024-11-22] MEDS ORDERED: magnesium Cl slow-release 64mg tablet PO PRN (17:25)
[2024-11-22] MEDS ORDERED: acetaminophen 325mg tablet PO PRN (17:25)
[2024-11-22] MEDS ORDERED: potassium Cl 20 mEq SR tablet PO PRN (17:25)
[2024-11-22] MEDS: furosemide 10 MG/1 ML 10ml inj IV SCH (18:12)
[2024-11-22] MEDS: finasteride 5mg tablet PO SCH (18:32)
[2024-11-22] MEDS ORDERED: glucagon, human recombinant 1mg kit SUBCUT PRN (19:20)
[2024-11-22] MEDS ORDERED: DEXTROSE 15 GM of carb/4 tabs (each vial/BOTTLE has 4 tablets) PO PRN ×2 (19:20)
[2024-11-22] MEDS ORDERED: dextrose 50%-water 50ml dispensing syringe IV PRN ×2 (19:20)
[2024-11-22 19:40] VITALS: BP 131/58; PULSE 73; RESP 16; TEMP 98.7; O2SAT 91
[2024-11-22 20:00] VITALS: RESP 16; O2SAT 91
[2024-11-22] MEDS: K and/or MAG REPLACEMENT MC SCH (20:00)
[2024-11-22] MEDS: INSULIN LISPRO 100 UNIT/ML INSULN.PEN MULTI-DOSE SQ SCH (21:32)
[2024-11-22] MEDS: pantoprazole 40mg Tablet.DR PO SCH (21:33)
[2024-11-22] MEDS: heparin, porcine 5000 units/ml vial SQ SCH (21:33)
[2024-11-22] MEDS: sennosides 8.6mg tablet PO SCH (21:33)
[2024-11-22] MEDS: mirtazapine 15mg tablet PO SCH (21:34)
[2024-11-22] MEDS: HYDROcodone/acetaminophen 5mg/325mg tablet PO PRN (21:34)
[2024-11-22] MEDS: tamsulosin 0.4mg capsule PO SCH (21:34)
[2024-11-22 22:00] VITALS: BP 109/39; PULSE 65; RESP 16; TEMP 98.1; O2SAT 99
[2024-11-23] VITALS (7 sets, daily range): BP systolic 91–119; BP diastolic 47–65; PULSE 56–102; RESP 12–18; TEMP 97.8–99.8; O2SAT 96–100
[2024-11-23] MEDS: CefTRIAXone/D5W-Rocephin 1gm 50 ML IV SCH (00:29)
[2024-11-23] MEDS: azithromycin/NS 500mg/250ml 250 ML IV SCH (01:03)
[2024-11-23 06:19] LABS: BASOPHILS # (AUTO) 0.1 X10'3 (0-0.2); BASOPHILS % (AUTO) 1.2 % (0-1); EOSINOPHILS # (AUTO) 0.3 X10'3 (0-0.9); EOSINOPHILS % (AUTO) 3.9 % (0-6); HEMATOCRIT 34.2 % (42.0-52.0); HEMOGLOBIN 11.2 g/dl (14.0-17.9); LYMPHOCYTES # (AUTO) 2.3 X10'3 (1.1-4.8); LYMPHOCYTES % (AUTO) 26.2 % (21-51); MEAN CORPUSCULAR HEMOGLOBIN 29.5 PG (27.0-31.0); MEAN CORPUSCULAR HGB CONC 32.9 g/dL (33.0-36.5); MEAN CORPUSCULAR VOLUME 89.8 FL (78-98); MEAN PLATELET VOLUME 9.5 FL (7.4-10.4); MONOCYTES # (AUTO) 0.9 X10'3 (0-0.9); MONOCYTES % (AUTO) 10.4 % (2-12); NEUTROPHILS # (AUTO) 5.2 X10'3 (1.8-7.7); NEUTROPHILS % (AUTO) 58.3 % (42-75); PLATELET COUNT 297 X10'3 (140-440); RED BLOOD COUNT 3.81 X10'6 (4.70-6.10); RED CELL DISTRIBUTION WIDTH 15.2 % (11.5-14.5); WHITE BLOOD COUNT 8.9 X10'3 (4.5-11.0)
[2024-11-23 06:33] LABS: ALBUMIN 2.8 G/DL (3.4-5.0); ANION GAP 10 (8-16); BLOOD UREA NITROGEN 25 MG/DL (7-18); BUN/CREATININE RATIO 23.8 (10.0-20.0); CALCIUM 8.8 MG/DL (8.5-10.1); CHLORIDE 105 MMOL/L (99-107); CREATININE 1.05 MG/DL (0.60-1.10); GLUCOSE 150 MG/DL (70-104); MAGNESIUM 1.7 MG/DL (1.5-2.4); POTASSIUM 3.8 MMOL/L (3.5-5.1); SODIUM 142 MMOL/L (135-145); TOTAL CARBON DIOXIDE 27.2 MMOL/L (24-32); eCRCL 52 ML/MIN; eGFR 69 ML/MIN
[2024-11-23] MEDS: VANCOMYCIN/WATER FOR INJ (PEG) 1.5GM/300 ML IVPB IV ONE (08:03)
[2024-11-23] MEDS: insulin glargine (Lantus) pen - multi-dose SQ SCH (08:07)
[2024-11-23] MEDS: atorvastatin 20mg tablet PO SCH (08:52)
[2024-11-23] MEDS: INSULIN LISPRO 100 UNIT/ML INSULN.PEN MULTI-DOSE SQ SCH (08:57)
[2024-11-23] MEDS ORDERED: ipratropium/albuterol 3ml nebule NEB PRN (17:25)
[2024-11-23] MEDS: vancomycin/NS 1 GM ADD-VANTAGE 250 ML IV SCH (19:36)
[2024-11-23] MEDS: ondansetron/PF 4mg/2ml inj IV PRN (19:36)
[2024-11-23] MEDS: carVEDilol 3.125mg tablet PO SCH (20:00)
[2024-11-23] MEDS: guaiFENesin ER 600mg tablet PO SCH (21:21)
[2024-11-23] MEDS: benzonatate 100mg capsule PO SCH (23:05)
[2024-11-24] MEDS: metoprolol tartrate 1mg/ml inj IV SCH (01:59)
[2024-11-24 06:00] VITALS: BP 124/59; PULSE 96; RESP 19; TEMP 98.6; O2SAT 95
[2024-11-24 07:03] LABS: BASOPHILS # (AUTO) 0.1 X10'3 (0-0.2); BASOPHILS % (AUTO) 0.4 % (0-1); EOSINOPHILS # (AUTO) 0.1 X10'3 (0-0.9); EOSINOPHILS % (AUTO) 0.7 % (0-6); HEMATOCRIT 33.1 % (42.0-52.0); HEMOGLOBIN 10.7 g/dl (14.0-17.9); LYMPHOCYTES # (AUTO) 2.1 X10'3 (1.1-4.8); LYMPHOCYTES % (AUTO) 16.5 % (21-51); MEAN CORPUSCULAR HEMOGLOBIN 29.4 PG (27.0-31.0); MEAN CORPUSCULAR HGB CONC 32.5 g/dL (33.0-36.5); MEAN CORPUSCULAR VOLUME 90.5 FL (78-98); MEAN PLATELET VOLUME 9.5 FL (7.4-10.4); MONOCYTES # (AUTO) 0.7 X10'3 (0-0.9); MONOCYTES % (AUTO) 5.4 % (2-12); NEUTROPHILS # (AUTO) 9.9 X10'3 (1.8-7.7); PLATELET COUNT 311 X10'3 (140-440); RED BLOOD COUNT 3.65 X10'6 (4.70-6.10); WHITE BLOOD COUNT 12.9 X10'3 (4.5-11.0)
[2024-11-24 07:34] LABS: ALBUMIN 2.9 G/DL (3.4-5.0); ANION GAP 9 (8-16); BLOOD UREA NITROGEN 30 MG/DL (7-18); CALCIUM 8.9 MG/DL (8.5-10.1); CHLORIDE 107 MMOL/L (99-107); GLUCOSE 171 MG/DL (70-104); MAGNESIUM 1.7 MG/DL (1.5-2.4); POTASSIUM 3.1 MMOL/L (3.5-5.1); SODIUM 141 MMOL/L (135-145); TOTAL CARBON DIOXIDE 24.8 MMOL/L (24-32); eCRCL 55 ML/MIN; eGFR 73 ML/MIN
[2024-11-24] MEDS: potassium Cl 20 mEq SR tablet PO PRN (08:33)
[2024-11-24 10:00] VITALS: BP 109/59; PULSE 91; RESP 15; TEMP 98.5; O2SAT 97
[2024-11-24 14:30] VITALS: PULSE 92; RESP 20; O2SAT 97
[2024-11-24 18:00] VITALS: BP 148/84; PULSE 105; RESP 15; TEMP 98.9; O2SAT 98
[2024-11-24] MEDS: VANCOMYCIN LEVEL IV ONE (19:34)
[2024-11-24 20:11] VITALS: PULSE 81; RESP 18; O2SAT 98
[2024-11-24] MEDS: VANCOMYCIN 500MG/WATER FOR INJ (PEG) PREMIX 100 ML IV SCH (21:35)
[2024-11-24 22:00] VITALS: BP 113/62; PULSE 89; RESP 16; TEMP 98.4; O2SAT 97
[2024-11-25 06:00] VITALS: BP 84/49; PULSE 103; RESP 16; TEMP 98.3; O2SAT 97
[2024-11-25 06:31] LABS: BASOPHILS # (AUTO) 0.1 X10'3 (0-0.2); BASOPHILS % (AUTO) 0.5 % (0-1); EOSINOPHILS # (AUTO) 0.1 X10'3 (0-0.9); EOSINOPHILS % (AUTO) 0.8 % (0-6); HEMATOCRIT 31.5 % (42.0-52.0); HEMOGLOBIN 10.2 g/dl (14.0-17.9); LYMPHOCYTES # (AUTO) 2.4 X10'3 (1.1-4.8); LYMPHOCYTES % (AUTO) 19.8 % (21-51); MEAN CORPUSCULAR HEMOGLOBIN 29.4 PG (27.0-31.0); MEAN CORPUSCULAR HGB CONC 32.5 g/dL (33.0-36.5); MEAN CORPUSCULAR VOLUME 90.5 FL (78-98); MEAN PLATELET VOLUME 9.3 FL (7.4-10.4); MONOCYTES # (AUTO) 0.7 X10'3 (0-0.9); MONOCYTES % (AUTO) 5.4 % (2-12); NEUTROPHILS # (AUTO) 8.9 X10'3 (1.8-7.7); NEUTROPHILS % (AUTO) 73.5 % (42-75); PLATELET COUNT 314 X10'3 (140-440); RED BLOOD COUNT 3.48 X10'6 (4.70-6.10); RED CELL DISTRIBUTION WIDTH 15.9 % (11.5-14.5); WHITE BLOOD COUNT 12.1 X10'3 (4.5-11.0)
[2024-11-25 06:53] LABS: ALBUMIN 2.7 G/DL (3.4-5.0); ANION GAP 8 (8-16); BLOOD UREA NITROGEN 28 MG/DL (7-18); BUN/CREATININE RATIO 28.6 (10.0-20.0); CALCIUM 8.9 MG/DL (8.5-10.1); CHLORIDE 108 MMOL/L (99-107); CREATININE 0.98 MG/DL (0.60-1.10); GLUCOSE 174 MG/DL (70-104); MAGNESIUM 1.7 MG/DL (1.5-2.4); POTASSIUM 3.9 MMOL/L (3.5-5.1); PRO BRAIN NATRIURETIC PEPTIDE 2584 PG/ML (0-125); SODIUM 140 MMOL/L (135-145); TOTAL CARBON DIOXIDE 24.1 MMOL/L (24-32); eCRCL 56 ML/MIN; eGFR 75 ML/MIN
[2024-11-25 07:00] VITALS: BP 96/47
[2024-11-25] MEDS: losartan 25mg tablet PO SCH (08:05)
[2024-11-25] MEDS: finasteride 5mg tablet PO SCH (08:08)
[2024-11-25 10:00] VITALS: BP 96/52; PULSE 92; RESP 17; TEMP 98.3; O2SAT 94
[2024-11-25 14:57] VITALS: PULSE 74; RESP 14; O2SAT 94
[2024-11-26] MEDS ORDERED: VANCOMYCIN LEVEL IV ONE (09:30)
== END 2024-11-25 15:08 | DRG 177 ==
LOC: ER 11:20 → ED HOLD 17:24 → ORTHO 4S 19:30
PROVIDERS: ADMIT Internal Medicine; ATTEND Internal Medicine
DX: J15.69 Pneumonia due to other Gram-negative bacteria (principal); I50.23 Acute on chronic systolic (congestive) heart failure; I11.0 Hypertensive heart disease with heart failure; J15.9 Unspecified bacterial pneumonia; J40 Bronchitis, not specified as acute or chronic; E11.9 Type 2 diabetes mellitus without complications; E78.5 Hyperlipidemia, unspecified; N40.0 Benign prostatic hyperplasia without lower urinary tract symptoms; K21.9 Gastro-esophageal reflux disease without esophagitis; I25.10 Atherosclerotic heart disease of native coronary artery without angina pectoris; Z88.1 Allergy status to other antibiotic agents; Z79.4 Long term (current) use of insulin; Z79.899 Other long term (current) drug therapy; Z95.1 Presence of aortocoronary bypass graft; Z85.038 Personal history of other malignant neoplasm of large intestine; Z86.73 Personal history of transient ischemic attack (TIA), and cerebral infarction without residual deficits; Z90.49 Acquired absence of other specified parts of digestive tract
CPT/HCPCS: 36415; 71045; 80048; 80202; 82948; 83605; 83735; 83880; 84145; 85025; 87040; 87077; 87081; 87186; 87324; 87449; 93005; 94760; 97161; 97530; 99285; A6213; A6250; G0378; J0456; J0696; J1644; J1815; J1938; J2405; J3370; J3372; J3490; J7030